=== PATIENT | female | born 1970 | race Caucasian/White ===

== ENCOUNTER 2016-11-23 15:17 | Emergency (ER) | payer SELFPAY ==
[2016-11-23] MEDS ORDERED: ONDANSETRON 4 MG TAB.RAPDIS PO ONE (15:42)
--- NOTE | 2016-11-23 15:46 | ER Document Report ---
ED Medical Screen (RME) - General Stated Complaint: NAUSEA Mode of Arrival: Ambulatory Information source: Patient Notes: c/o nausea for the past month and gagging but no vomiting. It has progressively gotten worse. Endorses associated abdominal pain, diarrhea but denies any fever/ chills. PMHx significant for Crohns disease. - Related Data Allergies/Adverse Reactions: metronidazole [From Flagyl] Allergy (Verified 11/23/16 15:42) Physical Exam - Vital signs Vitals: Temp Pulse Resp BP Pulse Ox 98.2 F 133 H 18 148/112 H 98 11/23/16 15:37 11/23/16 15:37 11/23/16 15:37 11/23/16 15:37 11/23/16 15:37 Course - Vital Signs Vital signs: Temp Pulse Resp BP Pulse Ox 98.2 F 133 H 18 148/112 H 98 11/23/16 15:37 11/23/16 15:37 11/23/16 15:37 11/23/16 15:37 11/23/16 15:37
[2016-11-23 16:05] LABS: ABSOLUTE EOSINOPHILS # (AUTO) 0.1 10^3/uL (0.0-0.6); ABSOLUTE LYMPHOCYTES (AUTO) 0.8 10^3/uL (0.5-4.7); ABSOLUTE NEUT (AUTO) 6.7 10^3/uL (1.7-8.2); BASOPHILS % (AUTO) 0.4 % (0-2); EOSINOPHILS % (AUTO) 0.8 % (0-6); HEMATOCRIT 42.8 % (36.0-47.0); HEMOGLOBIN 13.6 g/dL (12.0-15.5); LYMPHOCYTES % (AUTO) 9.8 % (13-45); MEAN CORPUSCULAR HGB CONC 31.8 g/dL (32.0-36.0); MEAN CORPUSCULAR VOLUME 79 fl (80-97); MONOCYTES % (AUTO) 11.3 % (3-13); RED BLOOD COUNT 5.44 10^6/uL (3.72-5.28); RED CELL DISTRIBUTION WIDTH 15.9 % (11.5-14.0); SEGMENTED NEUTROPHILS % (AUTO) 77.7 % (42-78); WHITE BLOOD COUNT 8.6 10^3/uL (4.0-10.5)
[2016-11-23 16:31] LABS: ALANINE AMINOTRANSFERASE 17 U/L (9-52); ALBUMIN 2.7 g/dL (3.5-5.0); ALKALINE PHOSPHATASE 113 U/L (38-126); ANION GAP 11 (5-19); ASPARTATE AMINO TRANSFERASE 12 U/L (14-36); BILIRUBIN,TOTAL 0.4 mg/dL (0.2-1.3); BLOOD UREA NITROGEN 10 mg/dL (7-20); CALCIUM 8.7 mg/dL (8.4-10.2); CARBON DIOXIDE 27 mmol/L (22-30); CHLORIDE 99 mmol/L (98-107); GLUCOSE 103 mg/dL (75-110); POTASSIUM 3.9 mmol/L (3.6-5.0); SODIUM 137.3 mmol/L (137-145); TOTAL PROTEIN 5.9 g/dL (6.3-8.2)
[2016-11-23] MEDS ORDERED: NORMAL SALINE 1000 ML 1,000 ML IV ONE (20:13)
[2016-11-23] MEDS ORDERED: METHYLPREDNISOLONE INJ 125 MG/2 ML SDV IV ONE (21:28)
--- NOTE | 2016-11-23 21:29 | ER Document Report ---
ED General - General Chief Complaint: Vomiting Stated Complaint: NAUSEA Mode of Arrival: Ambulatory Notes: Patient is a 46-year-old female with past medical history of inflammatory bowel disease who presents with 2.5 months of progressively worsening diarrhea, weight loss, and inability to eat a proper meal. She was taken off Humira in June and noticed that approximately 3-4 weeks thereafter the symptoms do develop. She has not seen a primary care physician regarding today's concerns. She is not currently taking anything to control her inflammatory bowel disease. She has had nausea without vomiting. No melena or hematochezia. She has not had any chest pain, shortness of breath or fever. Nothing improves or worsens or symptoms. Notes she's had similar symptoms in the past with a flare of her inflammatory bowel disease. TRAVEL OUTSIDE OF THE [place] IN LAST 30 DAYS: No - Related Data Allergies/Adverse Reactions: metronidazole [From Flagyl] Allergy (Verified 11/23/16 15:42) Past Medical History - General Information source: Patient - Social History Smoking Status: Never Smoker Chew tobacco use (# tins/day): No Frequency of alcohol use: None Drug Abuse: None Lives with: Family Family History: Reviewed & Not Pertinent Patient has suicidal ideation: No Patient has homicidal ideation: No Renal/ Medical History: Denies: Hx Peritoneal Dialysis Past Surgical History: Reports: Hx Abdominal Surgery - fissures Review of Systems - Review of Systems Notes: Constitutional: Negative for fever. Positive for weight loss HENT: Negative for sore throat. Eyes: Negative for visual changes. Cardiovascular: Negative for chest pain. Respiratory: Negative for shortness of breath. Gastrointestinal: Negative for abdominal pain, positive for diarrhea Genitourinary: Negative for dysuria. Musculoskeletal: Negative for back pain. Skin: Negative for rash. Neurological: Negative for headaches, weakness or numbness. 10 point ROS negative except as marked above and in HPI. Physical Exam - Vital signs Vitals: Temp Pulse Resp BP Pulse Ox 98.2 F 133 H 18 148/112 H 98 11/23/16 15:37 11/23/16 15:37 11/23/16 15:37 11/23/16 15:37 11/23/16 15:37 Interpretation: Hypertensive, Tachycardic Notes: PHYSICAL EXAMINATION: GENERAL: Well-appearing, well-nourished and in no acute distress. HEAD: Atraumatic, normocephalic. EYES: Pupils equal round and reactive to light, extraocular movements intact, sclera anicteric, conjunctiva are normal. ENT: nares patent, oropharynx clear without exudates. Moderately dry mucous membranes. NECK: Normal range of motion, supple without lymphadenopathy LUNGS: Breath sounds clear to auscultation bilaterally and equal. No wheezes rales or rhonchi. HEART: Regular rate and rhythm without murmurs ABDOMEN: Soft, nontender, normoactive bowel sounds. No guarding, no rebound. No masses appreciated. EXTREMITIES: Normal range of motion, no pitting or edema. No cyanosis. NEUROLOGICAL: No focal neurological deficits. Moves all extremities spontaneously and on command. PSYCH: Normal mood, normal affect. SKIN: Warm, Dry, normal turgor, no rashes or lesions noted. Course - Re-evaluation Re-evalutation: 11/23/16 21:28 Patient arrives complaining of 40 pound weight loss over the last 2-1/2 months as well as frequent diarrhea and inability to eat large quantities of food secondary to nausea without vomiting. She is overall nontoxic in appearance although she is severely tachycardic at time of arrival are in the 130s which I suspect is related to dehydration. She has no focal abdominal tenderness on exam to suggest an intra-abdominal abscess, bowel perforation, or fistula. I suspect the main etiology of her symptoms is her known inflammatory bowel disease as she was recently pulled off [facility] back in June and her symptoms developed within 1 month of that. She has recently moved to the area and does not have a primary care physician although is scheduled to see the [facility] in the next 1 month. Will start empirically on steroids, provide IV fluids and reassess. 11/23/16 22:19 Heart rate improved after IV fluids. Abdominal exam remains benign. Patient has tolerated oral intake. At this time will discharge with return precautions and follow-up recommendations. Verbal discharge instructions given a the bedside and opportunity for questions given. Medication warnings reviewed. Patient is in agreement with this plan and has verbalized understanding of return precautions and the need for primary care follow-up in the next 24-72 hours. - Vital Signs Vital signs: Temp Pulse Resp BP Pulse Ox 99.5 F 108 H 17 130/83 H 95 11/23/16 21:30 11/23/16 17:27 11/23/16 23:01 11/23/16 23:00 11/23/16 23:01 - Laboratory Result Diagrams: 11/23/16 15:50 11/23/16 15:50 Laboratory results interpreted by me: 11/23/16 11/23/16 15:50 15:50 RBC 5.44 H MCV 79 L MCH 25.0 L MCHC 31.8 L RDW 15.9 H Lymphocytes % 9.8 L AST 12 L Total Protein 5.9 L Albumin 2.7 L Discharge - Discharge Clinical Impression: Inflammatory bowel disease, Dehydration Condition: Good Disposition: HOME, SELF-CARE Additional Instructions: You are being started on steroids to help treat your inflammatory bowel disease however it is very important that you follow-up with both GI medicine as well as your primary care doctor as this is a long-term issue and will require chronic management. Please return to emergency department if you develop severe nausea, vomiting, worsening abdominal pain, fever greater than 100.4F, pass out, or have any other symptoms that are concerning to you. Prescriptions: Prednisone [Deltasone 20 mg Tablet] 3 tab PO DAILY 7 Days
[2016-11-23 23:27] VITALS: BP 130/83
== END 2016-11-23 23:50 | disposition home or self-care (01) ==
LOC: ER 15:17
DX: K63.89 Other specified diseases of intestine (principal); E86.0 Dehydration; R63.4 Abnormal weight loss; R19.7 Diarrhea, unspecified
CPT/HCPCS: 99283; 96361; 96374; 36415; 83690; 84703; 85025; 80053; S0119; J2930; J7030

== ENCOUNTER 2016-11-29 13:49 | Emergency (ER) | payer SELFPAY ==
[2016-11-29] MEDS ORDERED: ACETAMINOPHEN 325 MG TABLET PO ONE (14:11)
[2016-11-29] MEDS ORDERED: ONDANSETRON 4 MG TAB.RAPDIS PO ONE (14:12)
--- NOTE | 2016-11-29 14:12 | ER Document Report ---
ED Medical Screen (RME) - General Stated Complaint: FLU LIKE SYMPTOMS Mode of Arrival: Wheelchair Information source: Patient Notes: Patient has presented with feeling weak and having diarrhea for the past month. Patient was seen here from her primary doctor's office. Patient is complains of dizziness. No abdominal pain. No vomiting. hx: Possible crohns I have greeted and performed a rapid initial assessment of this patient. A comprehensive ED assessment and evaluation of the patient, analysis of test results and completion of the medical decision making process will be conducted by additional ED providers. TRAVEL OUTSIDE OF THE [place] IN LAST 30 DAYS: No - Related Data Allergies/Adverse Reactions: metronidazole [From Flagyl] Allergy (Verified 11/29/16 14:06) Past Medical History Renal/ Medical History: Denies: Hx Peritoneal Dialysis Past Surgical History: Reports: Hx Abdominal Surgery - fissures Physical Exam - Abdominal Tenderness: Tender - Lower abdomen
[2016-11-29 15:20] LABS: ABSOLUTE LYMPHOCYTES (AUTO) 0.4 10^3/uL (0.5-4.7); ABSOLUTE MONOCYTES (AUTO) 0.2 10^3/uL (0.1-1.4); ABSOLUTE NEUT (AUTO) 5.6 10^3/uL (1.7-8.2); BASOPHILS % (AUTO) 0.1 % (0-2); HEMATOCRIT 40.1 % (36.0-47.0); HEMOGLOBIN 12.9 g/dL (12.0-15.5); HGB HCT DIFFERENCE -1.4; LYMPHOCYTES % (AUTO) 7.1 % (13-45); MEAN CORPUSCULAR HEMOGLOBIN 24.6 pg (27.0-33.4); MEAN CORPUSCULAR HGB CONC 32.2 g/dL (32.0-36.0); MEAN CORPUSCULAR VOLUME 77 fl (80-97); MONOCYTES % (AUTO) 3.1 % (3-13); RED BLOOD COUNT 5.24 10^6/uL (3.72-5.28); RED CELL DISTRIBUTION WIDTH 16.3 % (11.5-14.0); SEGMENTED NEUTROPHILS % (AUTO) 89.7 % (42-78); WHITE BLOOD COUNT 6.2 10^3/uL (4.0-10.5)
[2016-11-29 15:41] LABS: ALANINE AMINOTRANSFERASE 19 U/L (9-52); ALBUMIN 2.4 g/dL (3.5-5.0); ALKALINE PHOSPHATASE 113 U/L (38-126); ANION GAP 8 (5-19); ASPARTATE AMINO TRANSFERASE 8 U/L (14-36); BILIRUBIN,TOTAL 0.3 mg/dL (0.2-1.3); BLOOD UREA NITROGEN 13 mg/dL (7-20); CALCIUM 8.2 mg/dL (8.4-10.2); CARBON DIOXIDE 30 mmol/L (22-30); CHLORIDE 97 mmol/L (98-107); CREATININE RESULT 0.69 mg/dL (0.52-1.25); GLUCOSE 150 mg/dL (75-110); LIPASE 46.8 U/L (23-300); POTASSIUM 4.3 mmol/L (3.6-5.0); SODIUM 135.2 mmol/L (137-145); TOTAL PROTEIN 5.9 g/dL (6.3-8.2)
[2016-11-29] MEDS ORDERED: NORMAL SALINE 1000 ML 1,000 ML IV ONE ×2 (16:47→21:45)
--- NOTE | 2016-11-29 16:56 | ER Document Report ---
ED General - General Chief Complaint: Diarrhea Stated Complaint: FLU LIKE SYMPTOMS Mode of Arrival: Wheelchair Information source: Patient Notes: This is a 46-year-old female with a history of inflammatory bowel disease who presents with a one-month history of worsening diarrhea and worsening worsening general weakness she states that she was seen here about a week ago for similar symptoms and received IV fluids. She was also placed on prednisone at that point. Today she had her first appointment at the [facility], and was noted to be so weak that she was having difficulty ambulating. It was felt that she would need IV fluids and the clinic was not able to do that so she was referred to the emergency department for further care. She states that she was diagnosed with her inflammatory bowel disease in [place] and she has not found a GI physician to follow up with here in [place]. However her physician at the [facility] is arranging this for her. She denies any fevers or chills. She has had no vomiting. She has just had significantly decreased oral intake over the past month. TRAVEL OUTSIDE OF THE [place] IN LAST 30 DAYS: No - Related Data Allergies/Adverse Reactions: metronidazole [From Flagyl] Allergy (Verified 11/29/16 14:06) Past Medical History - General Information source: Patient - Social History Smoking Status: Never Smoker Chew tobacco use (# tins/day): No Frequency of alcohol use: None Drug Abuse: None Family History: Reviewed & Not Pertinent Patient has suicidal ideation: No Patient has homicidal ideation: No Renal/ Medical History: Denies: Hx Peritoneal Dialysis GI Medical History: Reports: Other - inflammatory bowel disease Past Surgical History: Reports: Hx Abdominal Surgery - fissures Review of Systems - Review of Systems Notes: REVIEW OF SYSTEMS: CONSTITUTIONAL : Denies fever, chills, or sweats. EENT: Denies eye, ear, throat, or mouth pain or symptoms. Denies nasal or sinus congestion. CARDIOVASCULAR: Denies chest pain. RESPIRATORY: Denies cough, cold, or chest congestion. Denies shortness of breath, difficulty breathing, or wheezing. GASTROINTESTINAL: As per history of present illness GENITOURINARY: Denies difficulty urinating, painful urination, burning, frequency, or blood in urine. MUSCULOSKELETAL: Denies neck or back pain or joint pain or swelling. SKIN: Denies rash or skin lesions. HEMATOLOGIC : Denies easy bruising or bleeding. LYMPHATIC: Denies swollen, enlarged glands. NEUROLOGICAL: Denies altered mental status or loss of consciousness. Denies headache. PSYCHIATRIC: Denies anxiety or stress or depression. ALL OTHER SYSTEMS REVIEWED AND NEGATIVE. Physical Exam - Vital signs Vitals: Temp Pulse Resp BP Pulse Ox 97.7 F 96 18 146/103 H 98 11/29/16 14:06 11/29/16 14:06 11/29/16 14:06 11/29/16 14:06 11/29/16 14:06 - Notes Notes: PHYSICAL EXAMINATION: GENERAL: frail appearing female, somewhat pale, pleasant and conversant but very soft spoken HEAD: Atraumatic, normocephalic. EYES: Pupils equal round and reactive to light, extraocular movements intact, sclera anicteric, conjunctiva are normal. ENT: nares patent, oropharynx clear without exudates. Moist mucous somewhat dry. NECK: Normal range of motion, supple without lymphadenopathy LUNGS: Breath sounds clear to auscultation bilaterally and equal. No wheezes rales or rhonchi. HEART: Regular rate and rhythm without murmurs ABDOMEN: Soft, obese, nontender, normoactive bowel sounds. No guarding, no rebound. No masses appreciated. EXTREMITIES: Normal range of motion, no pitting or edema. No cyanosis. NEUROLOGICAL: Cranial nerves grossly intact. No focal motor or sensory deficits PSYCH: Normal mood, normal affect. SKIN: Warm, Dry, pale, normal turgor, no rashes or lesions noted. Course - Re-evaluation Re-evalutation: 11/29/16 21:47 Patient was reevaluated and we discussed the results of her CT and her lab work. She is feeling a little bit better after the IV fluids. However her orthostatics were done and she is still positive on her pulse rate has it went from 72-108 from lying to standing up her blood pressure did remain stable. The plan will be for her to receive 1 more liter of IV normal saline. She states that her physician at the [facility] is in the process of arranging her to see a advertising traffic manager which is what I believe needs to happen as the symptoms are secondary to her inflammatory bowel disease. Patient states actually her diarrhea is decreasing in frequency since starting the steroids. She is not vomiting and she is able to tolerate by mouth. She just has not had much of an appetite and is not drinking much at home. We discussed increasing her fluid intake and we discussed trying nutritional shakes as a supplement. At this point her labs and her CT are stable. I had a long discussion with the patient and her family about oral rehydration and follow-up precautions. They are comfortable with going home today as the patient has family to care for her and they will follow up with her primary care for GI evaluation. Patient family are reliable to return for any worsening symptoms. - Vital Signs Vital signs: Temp Pulse Resp BP Pulse Ox 97.7 F 72 16 135/86 H 97 11/29/16 14:09 11/29/16 21:29 11/29/16 14:09 11/29/16 21:29 11/29/16 14:09 - Laboratory Result Diagrams: 11/29/16 15:05 11/29/16 15:05 Laboratory results interpreted by me: 11/29/16 11/29/16 11/29/16 15:05 15:05 18:00 MCV 77 L MCH 24.6 L RDW 16.3 H Seg Neutrophils % 89.7 H Lymphocytes % 7.1 L Absolute Lymphocytes 0.4 L Sodium 135.2 L Chloride 97 L Glucose 150 H Calcium 8.2 L AST 8 L Total Protein 5.9 L Albumin 2.4 L Urine Blood MODERATE H Ur Leukocyte Esterase LARGE H - Diagnostic Test Radiology reviewed: Reports reviewed - CT of abdomen and pelvis with IV and oral contrast revealed no acute abnormality Discharge - Discharge Clinical Impression: Inflammatory bowel disease, Generalized weakness, Dehydration UTI (urinary tract infection) Qualifiers: Urinary tract infection type: site unspecified Hematuria presence: without hematuria Qualified Code(s): N39.0 - Urinary tract infection, site not specified Condition: Stable Disposition: HOME, SELF-CARE Additional Instructions: INTRAVENOUS (I V) FLUIDS: As part of your care today, you received intravenous (IV) fluids. IV fluids are administered to patients who are dehydrated or to those who have certain chemical (electrolyte) abnormalities that need correcting. ANTINAUSEA MEDICATION: You have been given a medication to suppress nausea and vomiting. This type of medication can be given as a shot, pill, or suppository. It will usually last for many hours. Pills and shots usually last six to eight hours. For the typical illness, only one or two doses of the medication may be necessary. Mild lightheadedness may occur. This type of medicine can cause drowsiness. Do not drive or operate dangerous machinery while under its influence. Do not mix with alcohol. See your doctor at once if you have muscle spasms or tightness, or uncontrollable motions (particularly of the neck, mouth, or jaw). Persistent vomiting or severe lightheadedness should also be evaluated by the physician. Dehydration Dehydration can result from vomiting or diarrhea, fever, or decreased intake of fluids. If severe, hospitalization and intravenous fluids may be required. Most cases are treated at home with fluids by mouth. For the next 24 hours, drink lots of clear fluids. In mild cases, this can be soda pop or sports drinks. For more severe dehydration, the doctor may recommend special fluids such as Pedialyte or Lytren. Try to get three liters ( 3 quarts) of fluid per day. If vomiting occurs, continue to drink the fluids frequently (every 15 to 20 minutes), but in small amounts (one or two ounces). Depending on the type of dehydration, the doctor may prescribe antinausea medicine or potassium replacements. Call the doctor or return for re-examination if you become progressively weak, vomit repeatedly, or have other new symptoms. Crohn's Disease Crohn's disease is an inflammatory disease of the intestines, affecting both the large and small intestine. The cause is unknown. Often there is vague abdominal pain and diarrhea for years before the diagnosis is made. The disease causes spotty thickening and inflammation of the bowel wall. With Crohn's disease, rectal fissures and abscesses are common. So is perforation of the bowel and internal abscess. The disease tends to flare spontaneously, then quiet down again. It never goes away completely. There is no cure for Crohn's disease. Acute flare-ups can be treated with steroids (such as prednisone), sometimes in combination with other medicines. Antibiotics (usually metronidazole) are often helpful. Sulfasalazine can ease the inflammation during flare-ups. Antidiarrhea medicine is taken as needed. Surgery may be needed for intestinal blockage, perforation, or hemorrhage. But surgery doesn't cure the disease -- it comes back in other places. Crohn's disease can cause immune disease in other body parts. Some patients will develop eye inflammation, arthritis, stiffened spine, liver inflammation, or skin disease. Kidney stones are more common in Crohn's patients. Lactose intolerance is common. There is a significant risk of developing a bowel tumor. Call the doctor if you have increasing abdominal pain, repeated vomiting, fever, rectal bleeding, or worsening diarrhea. Urinary Tract Infection Your evaluation indicates that you have a urinary tract infection. This is due to germs growing in the bladder. This is a common problem. This infection usually responds quickly to antibiotics. Your antibiotic should be taken exactly as prescribed. Drink plenty of fluids -- three to four quarts a day. Occasionally, a bladder anesthetic will be prescribed to help stop the feeling of urgency until the antibiotic has a chance to clear the infection. This may cause your urine to be dark orange. Certain urine infections require a culture. If the doctor obtained a culture, the results will be back in two days. You should call to see if a change in treatment is needed. A repeat urinalysis after you finish treatment is often recommended. The physician will let you know if further testing is required. Call the doctor if you develop fever, chills, flank pain, inability to urinate, or blood in the urine. FOLLOW-UP CARE: If you have been referred to a physician for follow-up care, call the physician s office for an appointment as you were instructed or within the next two days. If you experience worsening or a significant change in your symptoms, notify the physician immediately or return to the Emergency Department at any time for re-evaluation. It is very important that you follow-up with both GI medicine as well as your primary care doctor as your inflammatory bowel disease is a long-term issue and will require chronic management. Please return to emergency department if you develop severe nausea, vomiting, worsening abdominal pain, fever greater than 100.4F, pass out, or have any other symptoms that are concerning to you. Prescriptions: Ondansetron [Zofran Odt 4 mg Tablet] 1 tab PO Q4H PRN #15 tab.rapdis PRN Reason: For Nausea/Vomiting Sulfamethoxazole/Trimethoprim [Bactrim 400-80 mg Tablet] 1 each PO BID #10 tablet
[2016-11-29 19:47] LABS: APPEARANCE,URINE CLEAR; BILIRUBIN,URINE NEGATIVE (NEGATIVE); GLUCOSE, URINE NEGATIVE (NEGATIVE); KETONES,URINE NEGATIVE (NEGATIVE); LEUKOCYTE ESTERASE,URINE LARGE (NEGATIVE); NITRITE,URINE NEGATIVE (NEGATIVE); PROTEIN,URINE NEGATIVE (NEGATIVE); URINE SPECIFIC GRAVITY 1.006; UROBILINOGEN,URINE NEGATIVE mg/dL (<2.0)
[2016-11-29 23:42] VITALS: BP 138/76
== END 2016-11-29 23:42 | disposition home or self-care (01) ==
LOC: ER 13:49
DX: N39.0 Urinary tract infection, site not specified (principal); K50.90 Crohn's disease, unspecified, without complications; R53.1 Weakness; R19.7 Diarrhea, unspecified
CPT/HCPCS: 99284; 96360; 96361; 36415; 83690; 84703; 85025; 80053; 81001; 74177; S0119; J7030

== ENCOUNTER → 2016-12-01 | Outpatient (CLI) | payer OTHER | LOC: CCC 10:44 | DX: R19.7 Diarrhea, unspecified (principal); R68.81 Early satiety; D75.89 Other specified diseases of blood and blood-forming organs | CPT/HCPCS: 36415; 82607; 82728; 82746; 83540; 83550; 85652; 86677; 87045; 87177; 87205 ==

== ENCOUNTER 2016-12-07 16:41 | Inpatient (IN) | payer SELFPAY ==
--- NOTE | 2016-12-07 17:44 | ER Document Report ---
ED General - General Mode of Arrival: Medic Information source: Patient, Relative TRAVEL OUTSIDE OF THE [place] IN LAST 30 DAYS: No - HPI Patient complains to provider of: Generalized weakness and diarrhea Onset: Other - "Early September" Associated symptoms: Other - see above <PAYAM BROCK - Last Filed: 12/07/16 17:34> <RONYMARYBEL - Last Filed: 12/07/16 20:09> - General Chief Complaint: General Weakness Stated Complaint: WEAKNESS Notes: 46 year old female presents to the ED via EMS complaining of generalized weakness and diarrhea that has been present since early September. Patient's family states that she has a decreased appetite secondary to feeling like she has a "full stomach." [facility] and are trying to set up an appointment with Dr. Daly at [facility]. Patient has been seen in the ED on November 23 and complaining of generalized weakness, decreased appetite, diarrhea, and vomiting. Patient had a CT abdomen and pelvis performed on 11/29/2016 which was negative. Patient is not on any medications except for Zofran. (PAYAM BROCK) This 46-year-old female patient comes emergency room by EMS for complaint of feeling weak. She reports diarrhea, no appetite, nauseousness all the time. She reports she has thrown up 3 times a day and it is acid tasting. She usually does not vomit. She was seen here for the first time ever on 11/23/2016 at which time she was worked up and discharged on prednisone 60 mg daily for 7 days. She states that this did not seem to help her symptoms. She was seen again on 11/29/2016 and had a double contrasted CT scanning of the abdomen and pelvis which was unremarkable. She has been taking Zofran for nausea without much benefit. She reports she moved to this area in July 2016 and reports that she has been having worsening diarrhea, weight loss, and inability to eat a meal. The patient had been living in [place], where she was diagnosed with inflammatory bowel disease. She had been on Humira for a year, and possibly Imuran at the same time. She reports that controlled her symptoms quite well. This was stopped in June due to special program for the indigent had run out and she was unable to get the medication any longer. She moved to this area the following month. Lab work over the past 2 weeks shows the patient has a polycythemic, hypovolemic , hypochromic anemia. Her serum iron levels were too low to detect. She was also found to be hypoalbuminemic. (MARYBEL URIBE) - Related Data Allergies/Adverse Reactions: diphenhydramine [From Benadryl] Allergy (Verified 12/07/16 17:28) metronidazole [From Flagyl] Allergy (Verified 12/07/16 17:28) Past Medical History - General Information source: Patient, Relative - Social History Smoking Status: Unknown if Ever Smoked Family History: Reviewed & Not Pertinent - Medical History Medical History: Negative Renal/ Medical History: Denies: Hx Peritoneal Dialysis Past Surgical History: Reports: Hx Abdominal Surgery - anal fissure repair <PAYAM BROCK - Last Filed: 12/07/16 17:34> Review of Systems - Review of Systems Constitutional: See HPI, Weakness EENT: No symptoms reported Cardiovascular: No symptoms reported Respiratory: No symptoms reported Gastrointestinal: See HPI, Diarrhea, Poor appetite Genitourinary: No symptoms reported Female Genitourinary: No symptoms reported Musculoskeletal: No symptoms reported Skin: No symptoms reported Hematologic/Lymphatic: No symptoms reported Neurological/Psychological: No symptoms reported -: Yes All other systems reviewed and negative <PAYAM BROCK - Last Filed: 12/07/16 17:34> Physical Exam - General General appearance: Alert, Other - Slow to answer questions. In distress: None - HEENT Head: Normocephalic, Atraumatic Eyes: Normal Extraocular movements intact: Yes Pupils: PERRL - Respiratory Respiratory status: No respiratory distress Breath sounds: Normal - Cardiovascular Rhythm: Regular Heart sounds: Normal auscultation - Abdominal Inspection: Normal, Obese Distension: No distension Bowel sounds: Normal Tenderness: Nontender - Back Back: Normal - Extremities General upper extremity: Normal inspection, Normal ROM General lower extremity: Normal inspection, Normal ROM - Neurological Neuro grossly intact: Yes - Psychological Associated symptoms: Depressed - Skin Skin Temperature: Warm Skin Moisture: Dry Skin Color: Normal <PAYAM BROCK - Last Filed: 12/07/16 17:34> <MARYBEL URIBE - Last Filed: 12/07/16 20:09> - Vital signs Vitals: Resp 18 12/07/16 16:45 (PAYAM BROCK) (MARYBEL URIBE) Course - Laboratory Result Diagrams: 12/07/16 17:09 12/07/16 17:09 - Consults Dr. Duval Time consulted: 19:50 <MARYBEL URIBE - Last Filed: 12/07/16 20:09> - Vital Signs Vital signs: Temp Pulse Resp BP Pulse Ox 98.1 F 20 135/98 H 98 12/07/16 16:56 12/07/16 18:01 12/07/16 18:01 12/07/16 18:01 (PAYAM BROCK) (MARYBEL URIBE) - Laboratory Laboratory results interpreted by me: 12/07/16 12/07/16 17:09 17:09 MCV 74 L MCH 24.4 L RDW 16.3 H Plt Count 451 H Lymphocytes % 11.3 L Monocytes % 15.7 H Sodium 127.4 L Chloride 94 L Glucose 115 H Calcium 7.3 L Total Protein 4.9 L Albumin 1.7 L Lipase < 10.0 L (MARYBEL URIBE) Discharge <PAYAM BROCK - Last Filed: 12/07/16 17:34> - Discharge Admitting Provider: Hospitalist Unit Admitted: Medical Floor <MARYBEL URIBE - Last Filed: 12/07/16 20:09> - Discharge Clinical Impression: Nausea vomiting and diarrhea, Weakness, Hypoalbuminemia, Hyponatremia, Iron deficiency, Inflammatory bowel disease Condition: Stable Disposition: ADMITTED OBSERVATION Scribe Attestation: 12/07/16 20:09 I personally performed the services described in the documentation, reviewed and edited the documentation which was dictated to the scribe in my presence, and it accurately records my words and actions. (MARYBEL URIBE) Scribe Documentation - Scribe Written by Esteban:: Esteban Alamo, 12/07/2016 [id number] acting as scribe for :: Rony <PAYAM BROCK - Last Filed: 12/07/16 17:34>
[2016-12-07 17:52] LABS: ABSOLUTE MONOCYTES (AUTO) 1.4 10^3/uL (0.1-1.4); ABSOLUTE NEUT (AUTO) 6.5 10^3/uL (1.7-8.2); BASOPHILS % (AUTO) 0.2 % (0-2); EOSINOPHILS % (AUTO) 0.4 % (0-6); HEMATOCRIT 36.6 % (36.0-47.0); HGB HCT DIFFERENCE -0.6; LYMPHOCYTES % (AUTO) 11.3 % (13-45); MEAN CORPUSCULAR HEMOGLOBIN 24.4 pg (27.0-33.4); MEAN CORPUSCULAR HGB CONC 32.8 g/dL (32.0-36.0); MEAN CORPUSCULAR VOLUME 74 fl (80-97); MONOCYTES % (AUTO) 15.7 % (3-13); RED BLOOD COUNT 4.93 10^6/uL (3.72-5.28); RED CELL DISTRIBUTION WIDTH 16.3 % (11.5-14.0); SEGMENTED NEUTROPHILS % (AUTO) 72.4 % (42-78)
[2016-12-07 17:56] LABS: ALANINE AMINOTRANSFERASE 23 U/L (9-52); ALBUMIN 1.7 g/dL (3.5-5.0); ALKALINE PHOSPHATASE 117 U/L (38-126); ANION GAP 7 (5-19); ASPARTATE AMINO TRANSFERASE 25 U/L (14-36); BILIRUBIN,TOTAL 0.6 mg/dL (0.2-1.3); BLOOD UREA NITROGEN 11 mg/dL (7-20); CALCIUM 7.3 mg/dL (8.4-10.2); CARBON DIOXIDE 26 mmol/L (22-30); CHLORIDE 94 mmol/L (98-107); GLUCOSE 115 mg/dL (75-110); POTASSIUM 3.9 mmol/L (3.6-5.0); SODIUM 127.4 mmol/L (137-145); TOTAL PROTEIN 4.9 g/dL (6.3-8.2)
[2016-12-07 18:00] LABS: LIPASE < 10.0 U/L (23-300)
[2016-12-07] MEDS ORDERED: DEXTROSE 5%-LACTATED RINGERS 1,000 ML IV ONE (18:09)
[2016-12-07] MEDS ORDERED: ONDANSETRON HCL INJ/PF 4 MG/2 ML SDV IV ONE (18:10)
[2016-12-07 18:29] LABS: ERYTHROCYTE SEDIMENTATION RATE 14 mm/hr (0-20)
[2016-12-07 19:19] LABS: ADD ON TESTING BLD IN LAB ACKNOWLEDGE
[2016-12-07 19:32] LABS: MAGNESIUM 1.8 mg/dL (1.6-2.3)
[2016-12-07] MEDS ORDERED: TEMAZEPAM 7.5 MG CAPSULE PO PRN (19:57)
[2016-12-07] MEDS ORDERED: MAGNESIUM HYDROXIDE SUSP 30 ML UDCUP PO PRN (19:57)
[2016-12-07] MEDS ORDERED: ONDANSETRON HCL INJ/PF 4 MG/2 ML SDV IV PRN (19:57)
--- NOTE | 2016-12-07 20:44 | PDOC CONSULTATION ---
Consultation Consult Date: 12/07/16 Attending physician:: MEÑO CONNER Consult reason:: hyponatremia, low albumin, History of Present Illness Admission Date/PCP: 12/07/16 19:58 KATLYN SERNA MD History of Present Illness: DARREN KOEHLER is a 46 year old female I was asked to see patient by hospitalist physician patient recently moved to the area, patient apparently has been given a diagnosis of inflammatory bowel disease while in [place] patient apparently was on Humira provided by the [facility]. has moved to this area, has not seen a primary care physician she present with hyponatremia he main complaint is of nausea, vomiting and early satiety she also has diarrhea which she states is multiple times per day but her K is normal Her sed rate is normal without being on medication for her IBD her H/H is stable as well it is stated that she had a " double contrast CT scan " done on 11/29. However when I reviewed the note is specifically states that on IV contrast was provided and no oral contrast was administered her CT scan was normal at that time going thru her labs, I do not see any iron studies being performed unless they have been drawn at another location Past Medical History Past Medical History: patient was diagnosed with IBD, it is less likely to be ulcerative colitis since patient does not have bloody diarrhea Past Surgical History Past Surgical History: Anal fissure in the past Social History Smoking Status: Unknown if Ever Smoked Family History Family History: Reviewed & Not Pertinent Parental Family History Reviewed: Yes Children Family History Reviewed: Unknown Sibling(s) Family History Reviewed.: Unknown Medication/Allergy Home Medications: Ondansetron [Zofran Odt 4 mg Tablet] 4 mg PO Q4HP PRN 12/07/16 Allergies/Adverse Reactions: diphenhydramine [From Benadryl] Allergy (Verified 12/07/16 17:28) metronidazole [From Flagyl] Allergy (Verified 12/07/16 17:28) Review of Systems Constitutional: ABSENT: chills, fever(s), headache(s), night sweats Eyes: ABSENT: visual disturbances Ears: ABSENT: hearing changes Nose, Mouth, and Throat: ABSENT: mouth pain Cardiovascular: ABSENT: dyspnea on exertion, orthropnea, palpitations Respiratory: ABSENT: dyspnea, hemoptysis Gastrointestinal: PRESENT: bloating, diarrhea, nausea, vomiting. ABSENT: dysphagia, hematochezia, melena Genitourinary: ABSENT: dysuria, hematuria Integumentary: ABSENT: lesions, pruritus Neurological: ABSENT: frequent falls, syncope, tremor(s), vertigo Endocrine: ABSENT: cold intolerance, polydipsia, polyphagia, polyuria Physical Exam Vital Signs: Temp Pulse Resp BP Pulse Ox 98.1 F 20 135/98 H 98 12/07/16 16:56 12/07/16 18:01 12/07/16 18:01 12/07/16 18:01 General appearance: PRESENT: mild distress Head exam: PRESENT: atraumatic, normocephalic Eye exam: PRESENT: EOMI, PERRLA. ABSENT: nystagmus, periorbital swelling, scleral icterus Mouth exam: PRESENT: moist Neck exam: ABSENT: meningismus, tenderness, thyromegaly, tracheal deviation Respiratory exam: PRESENT: symmetrical, unlabored. ABSENT: chest wall tenderness, crackles Cardiovascular exam: PRESENT: RRR, +S1, +S2. ABSENT: rubs GI/Abdominal exam: PRESENT: normal bowel sounds, soft. ABSENT: guarding, Lester 's sign, rebound, rigid Musculoskeletal exam: PRESENT: full ROM Neurological exam: PRESENT: alert, awake, oriented to person, oriented to time, CN II-XII grossly intact Skin exam: PRESENT: normal color. ABSENT: mottled, pallor, petechiae, urticaria , vesicles Assessment & Plan - Diagnosis (1) Hyponatremia Plan: will need to have water restriction and work up for hypovolemic hyponatremia consult Nephrology if needed (2) Inflammatory bowel disease Plan: was given the diagnosis of IBD but has been off medication per her history somewhat surprising that her hgb is in the normal range, and her sed rate is normal at this point a contrast study would be best imaging exam she will need a repeat CT scan with oral contrast or a UGIS with SBFT would recheck anti-sachromyces antibody to determine if there is IBD will need to get records from previous health care provider to determine what work up was done she states that steroid did not work although that wouldl be the mainstay of therapy if biologicals are not used her WBC is normal as well her LFT's are similarly normal (3) Iron deficiency Plan: she has a low MCV anemia but since I am not able to find any iron studies done, would re draw iron levels, ferritin etc she does not appear to have profound anemia at this point if she does have evidence of Crohn's disease, then the question of treatment since 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
[2016-12-07] MEDS ORDERED: IRON POLYSACCHARIDES COMPLEX 150 MG CAPSULE PO ONE (21:00)
[2016-12-07] MEDS ORDERED: ASCORBIC ACID 500 MG TABLET PO ONE (21:00)
[2016-12-07] MEDS ORDERED: NORMAL SALINE 1000 ML 1,000 ML IV SCH (22:30)
[2016-12-07 23:12] LABS: PREALBUMIN 5.1 mg/dL (17.6-36.0)
[2016-12-07] MEDS: MESALAMINE 400 MG CAPSULE.DR PO SCH (23:25)
[2016-12-07] MEDS: HEPARIN SOD (PORCINE) 5,000 UNIT/ML 1 ML SYRINGE SUBCUT SCH (23:25)
[2016-12-07] MEDS: NORMAL SALINE 1000 ML 1,000 ML IV SCH (23:26)
[2016-12-08] MEDS: ACETAMINOPHEN 325 MG TABLET PO PRN ×5 (00:54→19:27)
[2016-12-08] MEDS ORDERED: INFLUENZA ADLT QUAD (36MOS+) 2016-17 VAC 0.5 ML SYR IM PRN (01:37)
[2016-12-08] MEDS: NORMAL SALINE 1000 ML 1,000 ML IV SCH (03:20)
--- NOTE | 2016-12-08 03:41 | PDOC H&P ---
History of Present Illness Admission Date/PCP: 12/07/16 19:58 KATLYN SERNA MD Patient complains of: Nausea vomiting History of Present Illness: DARREN KOEHLER is a 46 year old female with an unclear past medical history of ulcerative colitis on Humira until approximately 3 months ago after relocating from [place] to [place]. Over the last 2-3 weeks she's had early satiety nausea vomiting of gastric content and an unintentional weight loss of an estimated 20 pounds in the last month. She has a flat affect and a gag reflexes is initiated by oral exam and tongue protrusion. She denies any recent medications and otherwise feels profound fatigue. Evaluation the emergency room is concerning for severe malnutrition with an albumin of 1.7 a prealbumin of 5 she is referred to the hospitalist for admission Past Medical History GI Medical History: Reports: Ulcerative Colitis Psychiatric Medical History: Reports: Depression Social History Information Source: Patient, Parent Lives with: Family Smoking Status: Never Smoker Frequency of Alcohol Use: None Hx Recreational Drug Use: No Drugs: None Hx Prescription Drug Abuse: No - Advance Directive Resuscitation Status: Full Code Family History Family History: Hypertension Parental Family History Reviewed: Yes Children Family History Reviewed: Yes Sibling(s) Family History Reviewed.: Yes Medication/Allergy Home Medications: Ondansetron [Zofran Odt 4 mg Tablet] 4 mg PO Q4HP PRN 12/07/16 Acetaminophen 1,000 mg PO PRN PRN 12/08/16 Allergies/Adverse Reactions: diphenhydramine [From Benadryl] Allergy (Verified 12/07/16 17:28) metronidazole [From Flagyl] Allergy (Verified 12/07/16 17:28) Review of Systems Constitutional: PRESENT: as per HPI, anorexia, fatigue, weakness, weight loss. ABSENT: fever(s), headache(s), night sweats Eyes: ABSENT: visual disturbances Ears: ABSENT: hearing changes Cardiovascular: ABSENT: chest pain, dyspnea on exertion, edema, orthropnea, palpitations Respiratory: ABSENT: cough, hemoptysis Gastrointestinal: PRESENT: abdominal pain, bloating, diarrhea, heartburn, nausea , vomiting. ABSENT: coffee ground emesis, constipation, dysphagia, hematemesis , hematochezia, melena Genitourinary: ABSENT: dysuria, hematuria Musculoskeletal: ABSENT: joint swelling Integumentary: ABSENT: rash, wounds Neurological: ABSENT: abnormal gait, abnormal speech, confusion, dizziness, focal weakness, syncope Psychiatric: PRESENT: depression Endocrine: PRESENT: cold intolerance, menstrual abnormalities. ABSENT: polydipsia, polyphagia, polyuria Hematologic/Lymphatic: ABSENT: easy bleeding, easy bruising Physical Exam Vital Signs: Temp Pulse Resp BP Pulse Ox 98.7 F 108 H 18 124/78 100 12/07/16 23:38 12/08/16 00:06 12/07/16 23:38 12/07/16 23:38 12/07/16 23:38 General appearance: PRESENT: cooperative, disheveled, mild distress, morbidly obese Head exam: PRESENT: atraumatic, normocephalic Eye exam: PRESENT: conjunctiva pink, EOMI, PERRLA. ABSENT: scleral icterus Ear exam: PRESENT: normal external ear exam Mouth exam: PRESENT: dry mucosa, tongue midline, other - No oral ulcer, tongue beefy red Neck exam: ABSENT: carotid bruit, JVD, lymphadenopathy, thyromegaly Respiratory exam: PRESENT: clear to auscultation richi. ABSENT: rales, rhonchi, wheezes Cardiovascular exam: PRESENT: RRR. ABSENT: diastolic murmur, rubs, systolic murmur Pulses: PRESENT: normal dorsalis pedis pul Vascular exam: PRESENT: normal capillary refill GI/Abdominal exam: PRESENT: diminished bowel sounds, hypoactive bowel sounds, soft, tenderness. ABSENT: distended, firm, guarding, hernia, mass, Lester's sign, normal bowel sounds, organolmegaly, rebound, rigid Rectal exam: PRESENT: deferred Extremities exam: PRESENT: full ROM. ABSENT: calf tenderness, clubbing, pedal edema Neurological exam: PRESENT: alert, awake, oriented to person, oriented to place , oriented to time, oriented to situation, CN II-XII grossly intact. ABSENT: motor sensory deficit Psychiatric exam: PRESENT: anxious, depressed, flat affect, unusual affect Skin exam: PRESENT: dry, intact, warm. ABSENT: cyanosis, rash Results Laboratory Results: 12/07/16 12/07/16 12/07/16 21:15 21:15 22:40 Phosphorus Cancelled 3.0 Prealbumin Cancelled 5.1 L TSH 12/07/16 22:40 Phosphorus Prealbumin TSH 1.54 Assessment & Plan - Diagnosis (1) Ulcerative colitis Is this a current diagnosis for this admission?: YesPlan: Patient admits off Humira proximally 3 months though sedimentation rate is only 17 I'll initiate mesalamine for maintenance (2) Malnutrition Is this a current diagnosis for this admission?: YesPlan: Unclear if malabsorption, possible bacterial overgrowth, no evidence for pancreatic insufficiency. Stool studies pending Jo-Ann protein ordered low lactose and celiac diet ordered (3) Iron deficiency Is this a current diagnosis for this admission?: YesPlan: Fecal occult blood pending iron studies obtained approximately a week ago on record, Iron and vitamin C ordered (4) Nausea vomiting and diarrhea Is this a current diagnosis for this admission?: YesPlan: Symptomatic management, CT abdomen pelvis unremarkable trial clear liquid diet (5) Depression Is this a current diagnosis for this admission?: YesPlan: Depression patient has a flat affect and is nauseated by the action of protruding her tongue. Patient denies homicidal or suicidal ideation. I Will evaluate TSH and consider SSRI and or mental health consultation. - Time Time Spent: 30 to 50 Minutes
[2016-12-08 05:09] LABS: APPEARANCE,URINE SLIGHTLY-CLOUDY; BILIRUBIN,URINE NEGATIVE (NEGATIVE); GLUCOSE, URINE 150 mg/dL (NEGATIVE); KETONES,URINE NEGATIVE (NEGATIVE); LEUKOCYTE ESTERASE,URINE NEGATIVE (NEGATIVE); NITRITE,URINE NEGATIVE (NEGATIVE); PROTEIN,URINE NEGATIVE (NEGATIVE); URINE SPECIFIC GRAVITY 1.008; UROBILINOGEN,URINE NEGATIVE mg/dL (<2.0)
[2016-12-08] MEDS: HEPARIN SOD (PORCINE) 5,000 UNIT/ML 1 ML SYRINGE SUBCUT SCH ×3 (05:32→21:45)
[2016-12-08 05:33] LABS: ABSOLUTE EOSINOPHILS # (AUTO) 0.1 10^3/uL (0.0-0.6); ABSOLUTE NEUT (AUTO) 3.6 10^3/uL (1.7-8.2); BASOPHILS % (AUTO) 0.4 % (0-2); EOSINOPHILS % (AUTO) 1.1 % (0-6); HEMATOCRIT 30.2 % (36.0-47.0); HGB HCT DIFFERENCE -0.2; LYMPHOCYTES % (AUTO) 17.4 % (13-45); MEAN CORPUSCULAR HEMOGLOBIN 24.5 pg (27.0-33.4); MEAN CORPUSCULAR HGB CONC 33.2 g/dL (32.0-36.0); MEAN CORPUSCULAR VOLUME 74 fl (80-97); MONOCYTES % (AUTO) 17.1 % (3-13); RED CELL DISTRIBUTION WIDTH 16.3 % (11.5-14.0); WHITE BLOOD COUNT 5.6 10^3/uL (4.0-10.5)
[2016-12-08 05:53] LABS: ALANINE AMINOTRANSFERASE 31 U/L (9-52); ALBUMIN 1.1 g/dL (3.5-5.0); ALKALINE PHOSPHATASE 81 U/L (38-126); ASPARTATE AMINO TRANSFERASE 11 U/L (14-36); BILIRUBIN,TOTAL 0.5 mg/dL (0.2-1.3); BLOOD UREA NITROGEN 8 mg/dL (7-20); CARBON DIOXIDE 24 mmol/L (22-30); CHLORIDE 103 mmol/L (98-107); CREATININE RESULT 0.49 mg/dL (0.52-1.25); GLUCOSE 95 mg/dL (75-110); POTASSIUM 3.5 mmol/L (3.6-5.0); SODIUM 131.1 mmol/L (137-145); TOTAL PROTEIN 3.5 g/dL (6.3-8.2)
[2016-12-08 06:07] LABS: ANION GAP 4 (5-19)
[2016-12-08 06:08] LABS: CALCIUM 6.4 mg/dL (8.4-10.2)
[2016-12-08] MEDS ORDERED: METHYLPREDNISOLONE INJ 125 MG/2 ML SDV IV SCH (09:15)
[2016-12-08] MEDS: MESALAMINE 400 MG CAPSULE.DR PO SCH ×4 (09:24→21:45)
[2016-12-08] MEDS: ASCORBIC ACID 500 MG TABLET PO SCH ×2 (09:24→17:31)
[2016-12-08] MEDS: DOCUSATE SODIUM 100 MG CAPSULE PO SCH (09:24)
[2016-12-08] MEDS ORDERED: ONDANSETRON HCL INJ/PF 4 MG/2 ML SDV IV PRN (09:43)
[2016-12-08] MEDS ORDERED: IRON POLYSACCHARIDES COMPLEX 150 MG CAPSULE PO SCH (10:00)
[2016-12-08] MEDS: LACTOBACILLUS ACIDOPHILUS 250 MG TAB PO SCH ×2 (10:59→17:31)
[2016-12-08] MEDS ORDERED: MESALAMINE 4 GM/60 ML ENEMA PR ONE (11:00)
[2016-12-08] MEDS ORDERED: POTASSIUM CHLORIDE 10 MEQ TABLET.SA PO ONE (11:00)
[2016-12-08] MEDS: METHYLPREDNISOLONE INJ 125 MG/2 ML SDV IV SCH ×3 (11:00→23:52)
--- NOTE | 2016-12-08 11:28 | PDOC PROGRESS REPORT ---
Subjective Progress Note for:: 12/08/16 Subjective:: The patient is currently lying in bed. The patient denies any nausea, vomiting , diarrhea, shortness of breath, dizziness, chest pain, heart palpitations, fevers, or chills since admission. The patient has remained afebrile. Blood pressures have been in a good range. I discussed the patient's history with the patient and her mother. Although both are quite poor historians it appears the patient was diagnosed with ulcerative colitis in 2003. And some point in time the patient has been on a 5- ASA depending upon what samples have been available. The patient has been uninsured during this process. Most of the patient's course she is been treated through a free clinic with steroids. In June or August 2015 the patient qualified for a patient assistance program with [facility]. The patient took a year of Humira in conjunction with Imuran without complication. During this year the patient had no flares and symptoms were very well managed. However in June or August 2016 the patient was dropped from the program. The patient, being uninsured, abruptly stopping these medications and has not been on any medications for control since. The patient has not had a steroid course nor has she had a refill on her Imuran. The patient has relocated here from [place] and has [facility]. According to the patient's mother she was unable to get a refill on her prescriptions given that she "didn't have a diagnosis". Review of systems: The rest of the review of systems is negative. Physical Exam Vital Signs: Temp Pulse Resp BP Pulse Ox 97.5 F 115 H 20 130/82 H 99 12/08/16 08:36 12/08/16 08:36 12/08/16 08:36 12/08/16 08:36 12/08/16 08:36 Intake & Output 12/06/16 12/07/16 12/08/16 23:59 23:59 23:59 Intake Total 1573 Output Total 1000 Balance 573 Weight 77.1 kg General appearance: PRESENT: no acute distress, cooperative, well-developed, well-nourished Head exam: PRESENT: atraumatic, normocephalic Eye exam: PRESENT: conjunctiva pink, EOMI, PERRLA. ABSENT: scleral icterus Ear exam: PRESENT: normal external ear exam Mouth exam: PRESENT: moist, tongue midline Neck exam: ABSENT: carotid bruit, JVD, lymphadenopathy, thyromegaly Respiratory exam: PRESENT: clear to auscultation richi. ABSENT: rales, rhonchi, wheezes Cardiovascular exam: PRESENT: RRR. ABSENT: diastolic murmur, rubs, systolic murmur Pulses: PRESENT: normal dorsalis pedis pul Vascular exam: PRESENT: normal capillary refill GI/Abdominal exam: PRESENT: normal bowel sounds, soft. ABSENT: distended, guarding, mass, organolmegaly, rebound, tenderness Rectal exam: PRESENT: deferred Extremities exam: PRESENT: full ROM, other - Anasarca malnutrition. ABSENT: calf tenderness, clubbing, pedal edema Neurological exam: PRESENT: alert, awake, oriented to person, oriented to place , oriented to time, oriented to situation, CN II-XII grossly intact. ABSENT: motor sensory deficit Psychiatric exam: PRESENT: appropriate affect, normal mood. ABSENT: homicidal ideation, suicidal ideation Skin exam: PRESENT: dry, intact, pallor, warm. ABSENT: cyanosis, rash Results Laboratory Results: 12/08/16 05:19 12/08/16 05:19 12/07/16 12/07/16 12/07/16 21:15 21:15 22:40 WBC RBC Hgb Hct MCV MCH MCHC RDW Plt Count Seg Neutrophils % Lymphocytes % Monocytes % Eosinophils % Basophils % Absolute Neutrophils Absolute Lymphocytes Absolute Monocytes Absolute Eosinophils Absolute Basophils Sodium Potassium Chloride Carbon Dioxide Anion Gap BUN Creatinine Est GFR ( Amer) Est GFR (Non-Af Amer) Glucose Calcium Phosphorus Cancelled 3.0 Total Bilirubin AST ALT Alkaline Phosphatase Total Protein Albumin Prealbumin Cancelled 5.1 L TSH Urine Color Urine Appearance Urine pH Ur Specific [place] Urine Protein Urine Glucose (UA) Urine Ketones Urine Blood Urine Nitrite Ur Leukocyte Esterase Urine WBC (Auto) Urine RBC (Auto) Stool Occult Blood Stool for White Cells 12/07/16 12/08/16 12/08/16 22:40 04:33 04:33 WBC RBC Hgb Hct MCV MCH MCHC RDW Plt Count Seg Neutrophils % Lymphocytes % Monocytes % Eosinophils % Basophils % Absolute Neutrophils Absolute Lymphocytes Absolute Monocytes Absolute Eosinophils Absolute Basophils Sodium Potassium Chloride Carbon Dioxide Anion Gap BUN Creatinine Est GFR ( Amer) Est GFR (Non-Af Amer) Glucose Calcium Phosphorus Total Bilirubin AST ALT Alkaline Phosphatase Total Protein Albumin Prealbumin TSH 1.54 Urine Color Urine Appearance Urine pH Ur Specific [place] Urine Protein Urine Glucose (UA) Urine Ketones Urine Blood Urine Nitrite Ur Leukocyte Esterase Urine WBC (Auto) Urine RBC (Auto) Stool Occult Blood NEGATIVE Stool for White Cells MANY H 12/08/16 12/08/16 12/08/16 04:33 05:19 05:19 WBC 5.6 RBC 4.10 Hgb 10.0 L Hct 30.2 L MCV 74 L MCH 24.5 L MCHC 33.2 RDW 16.3 H Plt Count 217 Seg Neutrophils % 64.0 Lymphocytes % 17.4 Monocytes % 17.1 H Eosinophils % 1.1 Basophils % 0.4 Absolute Neutrophils 3.6 Absolute Lymphocytes 1.0 Absolute Monocytes 1.0 Absolute Eosinophils 0.1 Absolute Basophils 0.0 Sodium 131.1 L Potassium 3.5 L Chloride 103 Carbon Dioxide 24 Anion Gap 4 L BUN 8 Creatinine 0.49 L Est GFR ( Amer) > 60 Est GFR (Non-Af Amer) > 60 Glucose 95 Calcium 6.4 L* Phosphorus Total Bilirubin 0.5 AST 11 L ALT 31 Alkaline Phosphatase 81 Total Protein 3.5 L Albumin 1.1 L Prealbumin TSH Urine Color YELLOW Urine Appearance SLIGHTLY-CLOUDY Urine pH 6.0 Ur Specific [place] 1.008 Urine Protein NEGATIVE Urine Glucose (UA) 150 H Urine Ketones NEGATIVE Urine Blood NEGATIVE Urine Nitrite NEGATIVE Ur Leukocyte Esterase NEGATIVE Urine WBC (Auto) 7 Urine RBC (Auto) 0 Stool Occult Blood Stool for White Cells Assessment & Plan - Diagnosis (1) Ulcerative colitis Qualifiers: Ulcerative colitis location: unspecified ulcerative colitis location Digestive disease complication type: other complication Qualified Code(s) : K51.918 - Ulcerative colitis, unspecified with other complication Is this a current diagnosis for this admission?: YesPlan: Currently in flare. Will load with steroid. Decreased dose tomorrow. The patient is terribly malnourished. I have discussed this with her. Hopefully we can get patient in with GI or assistance through the free clinic. Unfortunately the patient has abruptly stopped immunotherapy and I discussed antibodies with the patient. (2) Depression Qualifiers: Depression Type: unspecified Qualified Code(s): F32.9 - Major depressive disorder, single episode, unspecified Is this a current diagnosis for this admission?: YesPlan: Odd affect (3) Hypoalbuminemia Is this a current diagnosis for this admission?: Yes (4) Hyponatremia Is this a current diagnosis for this admission?: YesPlan: Secondary to malnutrition (5) Iron deficiency Is this a current diagnosis for this admission?: YesPlan: Secondary to #1 will try to supplement. I require IV. (6) Malnutrition Is this a current diagnosis for this admission?: Yes - Time Time Spent with patient: 35 or more minutes Medications reviewed and adjusted accordingly: Yes Anticipated discharge: Home Within: within 48 hours
[2016-12-08] MEDS ORDERED: TAMSULOSIN HCL 0.4 MG CAP.SR.24H PO ONE (15:00)
[2016-12-09] MEDS: ACETAMINOPHEN 325 MG TABLET PO PRN ×3 (04:17→15:29)
[2016-12-09] MEDS: HEPARIN SOD (PORCINE) 5,000 UNIT/ML 1 ML SYRINGE SUBCUT SCH ×3 (05:39→22:14)
[2016-12-09] MEDS: METHYLPREDNISOLONE INJ 125 MG/2 ML SDV IV SCH ×4 (05:39→23:05)
[2016-12-09] MEDS ORDERED: CALCIUM GLUCONATE 1000 MG/10 ML INJ IV ONE (08:15)
[2016-12-09] MEDS ORDERED: LOPERAMIDE HCL 2 MG CAPSULE PO PRN (08:53)
[2016-12-09] MEDS ORDERED: DIPHENOXYLATE HCL/ATROP SULF 2.5-0.025 MG TABLET PO PRN (09:11)
[2016-12-09] MEDS ORDERED: POTASSIUM CHLORIDE 10 MEQ TABLET.SA PO ONE (09:30)
[2016-12-09] MEDS: LACTOBACILLUS ACIDOPHILUS 250 MG TAB PO SCH ×2 (09:45→18:18)
[2016-12-09] MEDS: MESALAMINE 400 MG CAPSULE.DR PO SCH ×4 (09:46→22:14)
[2016-12-09] MEDS: ASCORBIC ACID 500 MG TABLET PO SCH ×2 (09:48→18:19)
[2016-12-09] MEDS: DOCUSATE SODIUM 100 MG CAPSULE PO SCH (10:57)
[2016-12-09] MEDS: VITAMINS A AND D OINTMENT 56.7 GM TOP SCH ×2 (15:31→22:15)
[2016-12-09] MEDS: LANSOPRAZOLE 30 MG TAB.RAP.DR PO SCH (18:19)
[2016-12-09] MEDS: FAMOTIDINE 20 MG TABLET PO SCH (22:15)
[2016-12-10] MEDS: ACETAMINOPHEN 325 MG TABLET PO PRN ×3 (00:01→22:56)
[2016-12-10] MEDS: METHYLPREDNISOLONE INJ 125 MG/2 ML SDV IV SCH ×4 (06:11→23:01)
[2016-12-10] MEDS: HEPARIN SOD (PORCINE) 5,000 UNIT/ML 1 ML SYRINGE SUBCUT SCH ×3 (06:11→22:56)
[2016-12-10 06:55] LABS: ALANINE AMINOTRANSFERASE 22 U/L (9-52); ALBUMIN 1.9 g/dL (3.5-5.0); ALKALINE PHOSPHATASE 94 U/L (38-126); ANION GAP 6 (5-19); ASPARTATE AMINO TRANSFERASE 13 U/L (14-36); BILIRUBIN,TOTAL 0.3 mg/dL (0.2-1.3); BLOOD UREA NITROGEN 14 mg/dL (7-20); CALCIUM 7.9 mg/dL (8.4-10.2); CARBON DIOXIDE 25 mmol/L (22-30); CHLORIDE 101 mmol/L (98-107); CREATININE RESULT 0.69 mg/dL (0.52-1.25); GLUCOSE 131 mg/dL (75-110); POTASSIUM 4.9 mmol/L (3.6-5.0); SODIUM 132.4 mmol/L (137-145); TOTAL PROTEIN 4.8 g/dL (6.3-8.2)
[2016-12-10] MEDS: MESALAMINE 400 MG CAPSULE.DR PO SCH ×4 (09:04→22:56)
[2016-12-10] MEDS: DOCUSATE SODIUM 100 MG CAPSULE PO SCH (09:05)
[2016-12-10] MEDS: FAMOTIDINE 20 MG TABLET PO SCH ×2 (09:05→22:56)
[2016-12-10] MEDS: ASCORBIC ACID 500 MG TABLET PO SCH ×2 (09:05→17:38)
[2016-12-10] MEDS: LACTOBACILLUS ACIDOPHILUS 250 MG TAB PO SCH ×2 (09:05→17:37)
[2016-12-10] MEDS: LANSOPRAZOLE 30 MG TAB.RAP.DR PO SCH ×2 (09:09→17:38)
[2016-12-10] MEDS: VITAMINS A AND D OINTMENT 56.7 GM TOP SCH ×2 (10:24→17:00)
[2016-12-10] MEDS ORDERED: CALCIUM GLUCONATE 1000 MG/10 ML INJ IV ONE (11:00)
--- NOTE | 2016-12-10 15:27 | PDOC PROGRESS REPORT ---
Subjective Progress Note for:: 12/09/16 Subjective:: Patient seen on morning rounds. She is resting comfortably in bed. She denies any nausea or abdominal pain at the present time. She is continuing to have diarrhea but not as frequently. She denies any fever or chills. She denies any chest pain, shortness of breath or dyspnea. She denies any arthralgias or myalgias. Her mother is at bedside. Patient had to have Brownlee inserted overnight due to urinary retention. Patient denies any other complaints at the present time. Physical Exam Vital Signs: Temp Pulse Resp BP Pulse Ox 98.3 F 87 16 124/88 H 99 12/10/16 12:00 12/10/16 14:00 12/10/16 12:00 12/10/16 12:00 12/10/16 12:00 Intake & Output 12/09/16 12/10/16 12/11/16 06:59 06:59 06:59 Intake Total 705 Output Total 1800 Balance -1095 Weight 79.2 kg General appearance: PRESENT: no acute distress, well-developed, well-nourished Head exam: PRESENT: atraumatic, normocephalic Eye exam: PRESENT: conjunctiva pink, EOMI, PERRLA. ABSENT: scleral icterus Ear exam: PRESENT: normal external ear exam Mouth exam: PRESENT: moist, tongue midline Neck exam: PRESENT: carotid bruit Respiratory exam: PRESENT: accessory muscle use Cardiovascular exam: PRESENT: RRR. ABSENT: diastolic murmur, rubs, systolic murmur Pulses: PRESENT: normal dorsalis pedis pul Vascular exam: PRESENT: normal capillary refill GI/Abdominal exam: PRESENT: normal bowel sounds, soft. ABSENT: distended, guarding, mass, organolmegaly, rebound, tenderness Rectal exam: PRESENT: deferred Extremities exam: PRESENT: full ROM. ABSENT: calf tenderness, clubbing, pedal edema Neurological exam: PRESENT: alert, awake, oriented to person, oriented to place , oriented to time, oriented to situation, CN II-XII grossly intact. ABSENT: motor sensory deficit Psychiatric exam: PRESENT: appropriate affect, normal mood. ABSENT: homicidal ideation, suicidal ideation Skin exam: PRESENT: dry, intact, warm. ABSENT: cyanosis, rash Results Laboratory Results: 12/10/16 06:24 12/10/16 06:24 Sodium 132.4 L Potassium 4.9 Chloride 101 Carbon Dioxide 25 Anion Gap 6 BUN 14 Creatinine 0.69 Est GFR ( Amer) > 60 Est GFR (Non-Af Amer) > 60 Glucose 131 H Calcium 7.9 L Total Bilirubin 0.3 AST 13 L ALT 22 Alkaline Phosphatase 94 Total Protein 4.8 L Albumin 1.9 L Impressions: Abdomen/Pelvis CT 12/08/16 00:00 IMPRESSION: Scattered air-fluid levels with slightly distended large and small bowel. Very mild inflammation along the descending colon. This is improved when compared to prior study dated November 29. Changes may be related to 8 ileus partial distal small bowel obstruction cannot be excluded. There is no free air. There is free fluid in the pelvis. Abdomen Ultrasound 12/09/16 08:42 IMPRESSION: Fatty liver. No gallstones, gallbladder wall thickening or pericholecystic fluid Small Bowel X-Ray 12/09/16 11:29 IMPRESSION: SOMEWHAT DELAYED TRANSIT OF ORAL CONTRAST THROUGHOUT THE SMALL BOWEL INTO THE COLON SUGGESTIVE OF ILEUS GIVEN FINDINGS ON PRIOR CT. NO EVIDENCE FOR OBSTRUCTION. Assessment & Plan - Diagnosis (1) Hyponatremia Is this a current diagnosis for this admission?: YesPlan: Patient was initially rehydrated with IV normal saline. She is now on free water restriction. Her sodium is improving (2) Ulcerative colitis Qualifiers: Ulcerative colitis location: unspecified ulcerative colitis location Digestive disease complication type: other complication Qualified Code(s) : K51.918 - Ulcerative colitis, unspecified with other complication Is this a current diagnosis for this admission?: YesPlan: Patient has a history of inflammatory bowel disease diagnosed in [place]. Her last colonoscopy was 2 years ago. She recently relocated [place] told with her mother. She has not been seen by a physician since her arrival here. She has diarrhea for the last 3 weeks. There is been no blood. CT of the abdomen and pelvis with IV contrast only shows partial ileus of small bowel. After Jacob saw the patient in consult. His been started on prednisone and Asacol. He would like a ultrasound of the gallbladder small bowel series x- rays follow-through. (3) Iron deficiency Is this a current diagnosis for this admission?: YesPlan: Continue iron supplement hemoglobin is stable. (4) Hypoalbuminemia Is this a current diagnosis for this admission?: YesPlan: Albumin is 1.1 most likely due to malabsorption from inflammatory bowel disease. (5) Depression Qualifiers: Depression Type: unspecified Qualified Code(s): F32.9 - Major depressive disorder, single episode, unspecified Is this a current diagnosis for this admission?: YesPlan: continue current meds (6) Malnutrition Is this a current diagnosis for this admission?: YesPlan: Secondary to inflammatory bowel disease - Time Time Spent with patient: 25-34 minutes Critical Time spent with patient: 15-24 minutes Medications reviewed and adjusted accordingly: Yes Anticipated discharge: Home
--- NOTE | 2016-12-10 15:33 | PDOC PROGRESS REPORT ---
Subjective Progress Note for:: 12/10/16 Subjective:: Patient seen on morning rounds. She is resting comfortably in bed. She states she is feeling somewhat better. She denies any nausea or abdominal pain at the present time. She is continuing to have diarrhea but not as frequently. She denies any fever or chills. She denies any chest pain, shortness of breath or dyspnea. She denies any arthralgias or myalgias. Her mother is at bedside. Patient denies any other complaints at the present time. Physical Exam Vital Signs: Temp Pulse Resp BP Pulse Ox 98.3 F 87 16 124/88 H 99 12/10/16 12:00 12/10/16 14:00 12/10/16 12:00 12/10/16 12:00 12/10/16 12:00 Intake & Output 12/09/16 12/10/16 12/11/16 06:59 06:59 06:59 Intake Total 705 Output Total 1800 Balance -1095 Weight 79.2 kg General appearance: PRESENT: no acute distress, well-developed, well-nourished Head exam: PRESENT: atraumatic, normocephalic Ear exam: PRESENT: normal external ear exam Mouth exam: PRESENT: moist, neck supple, tongue midline Neck exam: ABSENT: carotid bruit, JVD, lymphadenopathy, thyromegaly Respiratory exam: PRESENT: clear to auscultation richi. ABSENT: rales, rhonchi, wheezes Cardiovascular exam: PRESENT: RRR. ABSENT: diastolic murmur, rubs, systolic murmur Pulses: PRESENT: normal dorsalis pedis pul Vascular exam: PRESENT: normal capillary refill GI/Abdominal exam: PRESENT: normal bowel sounds, soft. ABSENT: distended, guarding, mass, organolmegaly, rebound, tenderness Rectal exam: PRESENT: deferred Extremities exam: PRESENT: full ROM. ABSENT: calf tenderness, clubbing, pedal edema Musculoskeletal exam: PRESENT: full ROM, normal inspection Neurological exam: PRESENT: alert, awake, oriented to person, oriented to place , oriented to time, oriented to situation, CN II-XII grossly intact. ABSENT: motor sensory deficit Psychiatric exam: PRESENT: flat affect Skin exam: PRESENT: dry, intact, warm. ABSENT: cyanosis, rash Results Laboratory Results: 12/10/16 06:24 12/10/16 06:24 Sodium 132.4 L Potassium 4.9 Chloride 101 Carbon Dioxide 25 Anion Gap 6 BUN 14 Creatinine 0.69 Est GFR ( Amer) > 60 Est GFR (Non-Af Amer) > 60 Glucose 131 H Calcium 7.9 L Total Bilirubin 0.3 AST 13 L ALT 22 Alkaline Phosphatase 94 Total Protein 4.8 L Albumin 1.9 L Impressions: Abdomen/Pelvis CT 12/08/16 00:00 IMPRESSION: Scattered air-fluid levels with slightly distended large and small bowel. Very mild inflammation along the descending colon. This is improved when compared to prior study dated November 29. Changes may be related to 8 ileus partial distal small bowel obstruction cannot be excluded. There is no free air. There is free fluid in the pelvis. Abdomen Ultrasound 12/09/16 08:42 IMPRESSION: Fatty liver. No gallstones, gallbladder wall thickening or pericholecystic fluid Small Bowel X-Ray 12/09/16 11:29 IMPRESSION: SOMEWHAT DELAYED TRANSIT OF ORAL CONTRAST THROUGHOUT THE SMALL BOWEL INTO THE COLON SUGGESTIVE OF ILEUS GIVEN FINDINGS ON PRIOR CT. NO EVIDENCE FOR OBSTRUCTION. Assessment & Plan - Diagnosis (1) Hyponatremia Is this a current diagnosis for this admission?: YesPlan: Patient was initially rehydrated with IV normal saline. She is now on free water restriction. Her sodium is improving (2) Ulcerative colitis Qualifiers: Ulcerative colitis location: unspecified ulcerative colitis location Digestive disease complication type: other complication Qualified Code(s) : K51.918 - Ulcerative colitis, unspecified with other complication Is this a current diagnosis for this admission?: YesPlan: Patient has a history of inflammatory bowel disease diagnosed in [place]. Her last colonoscopy was 2 years ago. She recently relocated [place] told with her mother. She has not been seen by a physician since her arrival here. She has diarrhea for the last 3 weeks. There is been no blood. CT of the abdomen and pelvis with IV contrast only shows partial ileus of small bowel. After Jacob saw the patient in consult. His been started on prednisone and Asacol. He would like a ultrasound of the gallbladder was normal, small bowel series shows partial ileus of small bowel going into colon (3) Iron deficiency Is this a current diagnosis for this admission?: YesPlan: Continue iron supplement hemoglobin is stable. (4) Hypoalbuminemia Is this a current diagnosis for this admission?: YesPlan: Albumin today 1.9 secondary to malabsorption from IBD (5) Depression Qualifiers: Depression Type: unspecified Qualified Code(s): F32.9 - Major depressive disorder, single episode, unspecified Is this a current diagnosis for this admission?: YesPlan: continue current meds (6) Malnutrition Is this a current diagnosis for this admission?: YesPlan: Secondary to inflammatory bowel disease - Time Time Spent with patient: 25-34 minutes Critical Time spent with patient: 15-24 minutes Medications reviewed and adjusted accordingly: Yes
[2016-12-11] MEDS: HEPARIN SOD (PORCINE) 5,000 UNIT/ML 1 ML SYRINGE SUBCUT SCH ×3 (05:25→21:34)
[2016-12-11] MEDS: METHYLPREDNISOLONE INJ 125 MG/2 ML SDV IV SCH (05:25)
[2016-12-11] MEDS: ACETAMINOPHEN 325 MG TABLET PO PRN ×3 (06:51→21:34)
[2016-12-11 07:03] LABS: ABSOLUTE LYMPHOCYTES (AUTO) 0.3 10^3/uL (0.5-4.7); ABSOLUTE MONOCYTES (AUTO) 0.3 10^3/uL (0.1-1.4); ABSOLUTE NEUT (AUTO) 4.5 10^3/uL (1.7-8.2); BASOPHILS % (AUTO) 0.1 % (0-2); HEMATOCRIT 33.2 % (36.0-47.0); HEMOGLOBIN 10.7 g/dL (12.0-15.5); HGB HCT DIFFERENCE -1.1; LYMPHOCYTES % (AUTO) 6.2 % (13-45); MEAN CORPUSCULAR HEMOGLOBIN 24.2 pg (27.0-33.4); MEAN CORPUSCULAR HGB CONC 32.3 g/dL (32.0-36.0); MEAN CORPUSCULAR VOLUME 75 fl (80-97); MONOCYTES % (AUTO) 6.7 % (3-13); RED BLOOD COUNT 4.43 10^6/uL (3.72-5.28); RED CELL DISTRIBUTION WIDTH 17.3 % (11.5-14.0); WHITE BLOOD COUNT 5.2 10^3/uL (4.0-10.5)
[2016-12-11 07:19] LABS: ANION GAP 9 (5-19); BLOOD UREA NITROGEN 18 mg/dL (7-20); CALCIUM 8.1 mg/dL (8.4-10.2); CARBON DIOXIDE 25 mmol/L (22-30); CHLORIDE 100 mmol/L (98-107); CREATININE RESULT 0.61 mg/dL (0.52-1.25); GLUCOSE 137 mg/dL (75-110); POTASSIUM 5.8 mmol/L (3.6-5.0); SODIUM 133.5 mmol/L (137-145)
[2016-12-11] MEDS: LACTOBACILLUS ACIDOPHILUS 250 MG TAB PO SCH ×2 (09:05→17:47)
[2016-12-11] MEDS: MESALAMINE 400 MG CAPSULE.DR PO SCH ×4 (09:05→21:34)
[2016-12-11] MEDS: ASCORBIC ACID 500 MG TABLET PO SCH ×2 (09:06→17:48)
[2016-12-11] MEDS: FAMOTIDINE 20 MG TABLET PO SCH ×2 (09:06→21:34)
[2016-12-11] MEDS: LANSOPRAZOLE 30 MG TAB.RAP.DR PO SCH ×2 (09:06→17:48)
[2016-12-11] MEDS: DOCUSATE SODIUM 100 MG CAPSULE PO SCH (09:11)
[2016-12-11] MEDS: POLYETHYLENE GLYCOL 3350 POWDER 17 GM/1 PACKET PO SCH (09:11)
[2016-12-11] MEDS ORDERED: MAG CARB/AL HYDROX/ALGINIC AC 355 ML BOTTLE PO PRN (09:34)
[2016-12-11] MEDS: PREDNISONE 20 MG TABLET PO SCH ×2 (11:26→17:48)
[2016-12-11] MEDS: VITAMINS A AND D OINTMENT 56.7 GM TOP SCH ×2 (11:41→18:54)
--- NOTE | 2016-12-11 13:36 | PDOC PROGRESS REPORT ---
Subjective Progress Note for:: 12/11/16 Subjective:: Patient seen on morning rounds. She is resting comfortably in bed. She states she is feeling somewhat better. She denies any nausea or abdominal pain at the present time. She is continuing to have diarrhea but not as frequently. She states she thinks she has a rectal fissure. She denies any fever or chills. She denies any chest pain, shortness of breath or dyspnea. She denies any arthralgias or myalgias. Her mother is at bedside. Patient denies any other complaints at the present time. Physical Exam Vital Signs: Temp Pulse Resp BP Pulse Ox 98.2 F 96 20 128/80 H 100 12/11/16 12:40 12/11/16 12:40 12/11/16 12:40 12/11/16 12:40 12/11/16 12:40 Intake & Output 12/10/16 12/11/16 12/12/16 06:59 06:59 06:59 Intake Total 705 100 Output Total 1800 850 Balance -1095 -750 Weight 79.2 kg 79.2 kg General appearance: PRESENT: no acute distress, well-developed, well-nourished Head exam: PRESENT: atraumatic Eye exam: PRESENT: conjunctiva pink, EOMI, PERRLA. ABSENT: scleral icterus Ear exam: PRESENT: normal external ear exam Mouth exam: PRESENT: moist, tongue midline Neck exam: ABSENT: carotid bruit, JVD, lymphadenopathy, thyromegaly Respiratory exam: PRESENT: clear to auscultation richi. ABSENT: rales, rhonchi, wheezes Cardiovascular exam: PRESENT: RRR. ABSENT: diastolic murmur, rubs, systolic murmur Pulses: PRESENT: normal dorsalis pedis pul Vascular exam: PRESENT: normal capillary refill GI/Abdominal exam: PRESENT: normal bowel sounds, soft. ABSENT: distended, guarding, mass, organolmegaly, rebound, tenderness Rectal exam: PRESENT: deferred Extremities exam: PRESENT: full ROM. ABSENT: calf tenderness, clubbing, pedal edema Neurological exam: PRESENT: alert, awake, oriented to person, oriented to place , oriented to time, oriented to situation, CN II-XII grossly intact. ABSENT: motor sensory deficit Psychiatric exam: PRESENT: appropriate affect, normal mood. ABSENT: homicidal ideation, suicidal ideation Skin exam: PRESENT: dry, intact, warm. ABSENT: cyanosis, rash Results Laboratory Results: 12/11/16 06:14 12/11/16 06:14 12/11/16 12/11/16 06:14 06:14 WBC 5.2 RBC 4.43 Hgb 10.7 L Hct 33.2 L MCV 75 L MCH 24.2 L MCHC 32.3 RDW 17.3 H Plt Count 455 H Seg Neutrophils % 87.0 H Lymphocytes % 6.2 L Monocytes % 6.7 Eosinophils % 0.0 Basophils % 0.1 Absolute Neutrophils 4.5 Absolute Lymphocytes 0.3 L Absolute Monocytes 0.3 Absolute Eosinophils 0.0 Absolute Basophils 0.0 Sodium 133.5 L Potassium 5.8 H Chloride 100 Carbon Dioxide 25 Anion Gap 9 BUN 18 Creatinine 0.61 Est GFR ( Amer) > 60 Est GFR (Non-Af Amer) > 60 Glucose 137 H Calcium 8.1 L Impressions: Abdomen/Pelvis CT 12/08/16 00:00 IMPRESSION: Scattered air-fluid levels with slightly distended large and small bowel. Very mild inflammation along the descending colon. This is improved when compared to prior study dated November 29. Changes may be related to 8 ileus partial distal small bowel obstruction cannot be excluded. There is no free air. There is free fluid in the pelvis. Abdomen Ultrasound 12/09/16 08:42 IMPRESSION: Fatty liver. No gallstones, gallbladder wall thickening or pericholecystic fluid Small Bowel X-Ray 12/09/16 11:29 IMPRESSION: SOMEWHAT DELAYED TRANSIT OF ORAL CONTRAST THROUGHOUT THE SMALL BOWEL INTO THE COLON SUGGESTIVE OF ILEUS GIVEN FINDINGS ON PRIOR CT. NO EVIDENCE FOR OBSTRUCTION. Assessment & Plan - Diagnosis (1) Hyponatremia Is this a current diagnosis for this admission?: YesPlan: Patient was initially rehydrated with IV normal saline. She is now on free water restriction. Her sodium is improving (2) Ulcerative colitis Qualifiers: Ulcerative colitis location: unspecified ulcerative colitis location Digestive disease complication type: other complication Qualified Code(s) : K51.918 - Ulcerative colitis, unspecified with other complication Is this a current diagnosis for this admission?: YesPlan: Patient has a history of inflammatory bowel disease diagnosed in [place]. Her last colonoscopy was 2 years ago. She recently relocated [place] told with her mother. She has not been seen by a physician since her arrival here. She has diarrhea for the last 3 weeks. There is been no blood. CT of the abdomen and pelvis with IV contrast only shows partial ileus of small bowel. After Jacob saw the patient in consult. His been started on prednisone and Asacol. He would like a ultrasound of the gallbladder was normal, small bowel series shows partial ileus of small bowel going into colon (3) Iron deficiency Is this a current diagnosis for this admission?: YesPlan: Continue iron supplement hemoglobin is stable. (4) Hypoalbuminemia Is this a current diagnosis for this admission?: YesPlan: Albumin today 1.9 secondary to malabsorption from IBD (5) Depression Qualifiers: Depression Type: unspecified Qualified Code(s): F32.9 - Major depressive disorder, single episode, unspecified Is this a current diagnosis for this admission?: YesPlan: continue current meds (6) Malnutrition Is this a current diagnosis for this admission?: YesPlan: Secondary to inflammatory bowel disease - Time Time Spent with patient: 25-34 minutes Critical Time spent with patient: 15-24 minutes Medications reviewed and adjusted accordingly: Yes Anticipated discharge: Home
[2016-12-11] MEDS: HYDROCORTISONE 1% OINTMENT 28.35 GM TP SCH (17:48)
[2016-12-12] MEDS: HEPARIN SOD (PORCINE) 5,000 UNIT/ML 1 ML SYRINGE SUBCUT SCH ×3 (06:07→21:28)
[2016-12-12 06:44] LABS: ANION GAP 8 (5-19); BLOOD UREA NITROGEN 16 mg/dL (7-20); CARBON DIOXIDE 26 mmol/L (22-30); CHLORIDE 102 mmol/L (98-107); CREATININE RESULT 0.53 mg/dL (0.52-1.25); GLUCOSE 123 mg/dL (75-110); POTASSIUM 4.6 mmol/L (3.6-5.0)
[2016-12-12] MEDS: ACETAMINOPHEN 325 MG TABLET PO PRN (08:46)
[2016-12-12] MEDS ORDERED: HYDROCORTISONE ACETATE 25 MG SUPP.RECT PR PRN (09:29)
[2016-12-12] MEDS: DOCUSATE SODIUM 100 MG CAPSULE PO SCH (10:19)
[2016-12-12] MEDS: FAMOTIDINE 20 MG TABLET PO SCH ×2 (10:19→21:28)
[2016-12-12] MEDS: LANSOPRAZOLE 30 MG TAB.RAP.DR PO SCH ×2 (10:20→18:39)
[2016-12-12] MEDS: CHOLECALCIFEROL (D3) 1,000 UNIT TABLET PO SCH (10:20)
[2016-12-12] MEDS: PREDNISONE 20 MG TABLET PO SCH ×3 (10:20→18:40)
[2016-12-12] MEDS: LACTOBACILLUS ACIDOPHILUS 250 MG TAB PO SCH ×2 (10:20→18:38)
[2016-12-12] MEDS: ASCORBIC ACID 500 MG TABLET PO SCH ×2 (10:21→18:38)
[2016-12-12] MEDS: POLYETHYLENE GLYCOL 3350 POWDER 17 GM/1 PACKET PO SCH (10:21)
[2016-12-12] MEDS: MESALAMINE 400 MG CAPSULE.DR PO SCH ×4 (10:21→21:28)
[2016-12-12] MEDS: HYDROCORTISONE 1% OINTMENT 28.35 GM TP SCH ×2 (10:23→18:40)
[2016-12-12] MEDS: VITAMINS A AND D OINTMENT 56.7 GM TOP SCH ×2 (10:56→18:40)
--- NOTE | 2016-12-12 11:50 | PDOC PROGRESS REPORT ---
Subjective Progress Note for:: 12/12/16 Subjective:: Patient seen on morning rounds. She is resting comfortably in bed. She states she is feeling somewhat better. She denies any nausea or abdominal pain at the present time. She is continuing to have diarrhea but not as frequently. She states she thinks she has a rectal fissure. She denies any fever or chills. She denies any chest pain, shortness of breath or dyspnea. She denies any arthralgias or myalgias. Her mother is at bedside. Patient denies any other complaints at the present time. Physical Exam Vital Signs: Temp Pulse Resp BP Pulse Ox 97.5 F 76 18 136/85 H 100 12/11/16 14:58 12/12/16 02:00 12/11/16 14:58 12/11/16 14:58 12/11/16 14:58 Intake & Output 12/11/16 12/12/16 12/13/16 06:59 06:59 06:59 Intake Total 100 845 Output Total 850 2850 - Weight 79.2 kg 79.1 kg General appearance: PRESENT: no acute distress, well-developed, well-nourished Head exam: PRESENT: atraumatic, normocephalic Eye exam: PRESENT: conjunctiva pink, EOMI, PERRLA. ABSENT: scleral icterus Ear exam: PRESENT: normal external ear exam Mouth exam: PRESENT: moist, tongue midline Neck exam: ABSENT: carotid bruit, JVD, lymphadenopathy, thyromegaly Respiratory exam: PRESENT: clear to auscultation richi. ABSENT: rales, rhonchi, wheezes Cardiovascular exam: PRESENT: RRR. ABSENT: diastolic murmur, rubs, systolic murmur Pulses: PRESENT: normal dorsalis pedis pul Vascular exam: PRESENT: normal capillary refill GI/Abdominal exam: PRESENT: normal bowel sounds, soft. ABSENT: distended, guarding, mass, organolmegaly, rebound, tenderness Rectal exam: PRESENT: deferred Extremities exam: PRESENT: full ROM. ABSENT: calf tenderness, clubbing, pedal edema Neurological exam: PRESENT: alert, awake, oriented to person, oriented to place , oriented to time, oriented to situation, CN II-XII grossly intact. ABSENT: motor sensory deficit Psychiatric exam: PRESENT: appropriate affect, normal mood. ABSENT: homicidal ideation, suicidal ideation Skin exam: PRESENT: dry, intact, warm. ABSENT: cyanosis, rash Results Laboratory Results: 12/11/16 06:14 12/12/16 06:17 12/12/16 06:17 Sodium 136.0 L Potassium 4.6 Chloride 102 Carbon Dioxide 26 Anion Gap 8 BUN 16 Creatinine 0.53 Est GFR ( Amer) > 60 Est GFR (Non-Af Amer) > 60 Glucose 123 H Calcium 8.0 L Impressions: Abdomen/Pelvis CT 12/08/16 00:00 IMPRESSION: Scattered air-fluid levels with slightly distended large and small bowel. Very mild inflammation along the descending colon. This is improved when compared to prior study dated November 29. Changes may be related to 8 ileus partial distal small bowel obstruction cannot be excluded. There is no free air. There is free fluid in the pelvis. Abdomen Ultrasound 12/09/16 08:42 IMPRESSION: Fatty liver. No gallstones, gallbladder wall thickening or pericholecystic fluid Small Bowel X-Ray 12/09/16 11:29 IMPRESSION: SOMEWHAT DELAYED TRANSIT OF ORAL CONTRAST THROUGHOUT THE SMALL BOWEL INTO THE COLON SUGGESTIVE OF ILEUS GIVEN FINDINGS ON PRIOR CT. NO EVIDENCE FOR OBSTRUCTION. Assessment & Plan - Diagnosis (1) Hyponatremia Is this a current diagnosis for this admission?: YesPlan: Patient was initially rehydrated with IV normal saline. She is now on free water restriction. Her sodium is improving (2) Ulcerative colitis Qualifiers: Ulcerative colitis location: unspecified ulcerative colitis location Digestive disease complication type: other complication Qualified Code(s) : K51.918 - Ulcerative colitis, unspecified with other complication Is this a current diagnosis for this admission?: Yes (3) Iron deficiency Is this a current diagnosis for this admission?: Yes (4) Hypoalbuminemia Is this a current diagnosis for this admission?: Yes (5) Depression Qualifiers: Depression Type: unspecified Qualified Code(s): F32.9 - Major depressive disorder, single episode, unspecified Is this a current diagnosis for this admission?: Yes (6) Malnutrition Is this a current diagnosis for this admission?: Yes - Time Time Spent with patient: 25-34 minutes Critical Time spent with patient: 15-24 minutes Medications reviewed and adjusted accordingly: Yes
--- NOTE | 2016-12-12 13:12 | PDOC PROGRESS REPORT ---
Subjective Progress Note for:: 12/12/16 Subjective:: Patient is feeling somewhat better. She is resting comfortably. Diarrhea seems to be improving. However this no blood in her stools. This makes a diagnosis of ulcerative colitis less likely. Given the fact that she's not had any treatment and did not have any bloody diarrhea would suggest that if she did have inflammatory bowel disease he would be related more to Crohn's disease. She did have all contrast on the CT scan and it did not suggest any narrowing, stricture. Which would be more common with Crohn's disease. There does not appear to be an obstruction. It was read Be having an ileus. When she first came in she was started on some anti-inflammatory medications.. While that could have made her feel better she is really only had at best to to 3 days of therapy however her overall improvement seems to have improved more dramatically with hydration. Her hyponatremia is improving. Physical Exam Vital Signs: Temp Pulse Resp BP Pulse Ox 97.5 F 76 18 136/85 H 100 12/11/16 14:58 12/12/16 02:00 12/11/16 14:58 12/11/16 14:58 12/11/16 14:58 Intake & Output 12/11/16 12/12/16 12/13/16 06:59 06:59 06:59 Intake Total 100 845 Output Total 850 2850 - Weight 79.2 kg 79.1 kg General appearance: PRESENT: no acute distress, well-developed, well-nourished Head exam: PRESENT: atraumatic, normocephalic Eye exam: PRESENT: EOMI, PERRLA. ABSENT: nystagmus, periorbital swelling, scleral icterus Mouth exam: PRESENT: moist Throat exam: ABSENT: tonsillar exudate Neck exam: ABSENT: meningismus, tenderness, thyromegaly Respiratory exam: PRESENT: clear to auscultation richi, symmetrical. ABSENT: wheezes Cardiovascular exam: PRESENT: RRR, +S1, +S2. ABSENT: rubs Pulses: PRESENT: normal carotid pulses GI/Abdominal exam: PRESENT: soft. ABSENT: Lester's sign, rebound, rigid, tenderness Musculoskeletal exam: PRESENT: full ROM Neurological exam: PRESENT: alert, awake, oriented to person, oriented to time, oriented to situation, reflexes normal Psychiatric exam: PRESENT: appropriate affect Skin exam: PRESENT: normal color. ABSENT: mottled, pallor, petechiae, rash, urticaria, vesicles Results Laboratory Results: 12/11/16 06:14 12/12/16 06:17 12/12/16 06:17 Sodium 136.0 L Potassium 4.6 Chloride 102 Carbon Dioxide 26 Anion Gap 8 BUN 16 Creatinine 0.53 Est GFR ( Amer) > 60 Est GFR (Non-Af Amer) > 60 Glucose 123 H Calcium 8.0 L Impressions: Abdomen/Pelvis CT 12/08/16 00:00 IMPRESSION: Scattered air-fluid levels with slightly distended large and small bowel. Very mild inflammation along the descending colon. This is improved when compared to prior study dated November 29. Changes may be related to 8 ileus partial distal small bowel obstruction cannot be excluded. There is no free air. There is free fluid in the pelvis. Abdomen Ultrasound 12/09/16 08:42 IMPRESSION: Fatty liver. No gallstones, gallbladder wall thickening or pericholecystic fluid Small Bowel X-Ray 12/09/16 11:29 IMPRESSION: SOMEWHAT DELAYED TRANSIT OF ORAL CONTRAST THROUGHOUT THE SMALL BOWEL INTO THE COLON SUGGESTIVE OF ILEUS GIVEN FINDINGS ON PRIOR CT. NO EVIDENCE FOR OBSTRUCTION. Assessment & Plan - Diagnosis (1) Hyponatremia Is this a current diagnosis for this admission?: YesPlan: Improving with water restriction. Continue to follow. (2) Inflammatory bowel disease Plan: Given his symptoms is not likely that she has ulcerative colitis. As noted if she does have inflammatory bowel disease it is probably related moderate Crohn' s disease. Would recommend anti-Saccharomyces antibody to be done. Alternatively blood work and be obtained through the [facility] for antibody screening with respect to inflammatory bowel disease (3) Iron deficiency Is this a current diagnosis for this admission?: YesPlan: She may need outpatient follow-up , she may require EGD and colonoscopy (4) Nausea vomiting and diarrhea Is this a current diagnosis for this admission?: YesPlan: Improved with hydration, she can be started on mesalamine product This can be continued as an outpatient. - Time Time Spent with patient: 25-34 minutes
[2016-12-13] MEDS: HEPARIN SOD (PORCINE) 5,000 UNIT/ML 1 ML SYRINGE SUBCUT SCH ×3 (06:19→21:55)
[2016-12-13] MEDS: ASCORBIC ACID 500 MG TABLET PO SCH ×2 (09:57→17:54)
[2016-12-13] MEDS: CHOLECALCIFEROL (D3) 1,000 UNIT TABLET PO SCH (09:57)
[2016-12-13] MEDS: PREDNISONE 20 MG TABLET PO SCH ×4 (09:57→17:55)
[2016-12-13] MEDS: LACTOBACILLUS ACIDOPHILUS 250 MG TAB PO SCH ×2 (09:57→17:53)
[2016-12-13] MEDS: LANSOPRAZOLE 30 MG TAB.RAP.DR PO SCH ×2 (09:58→17:53)
[2016-12-13] MEDS: MESALAMINE 400 MG CAPSULE.DR PO SCH ×4 (09:58→21:55)
[2016-12-13] MEDS: FAMOTIDINE 20 MG TABLET PO SCH ×2 (09:58→21:55)
[2016-12-13] MEDS: HYDROCORTISONE 1% OINTMENT 28.35 GM TP SCH ×2 (10:01→17:55)
[2016-12-13] MEDS: DOCUSATE SODIUM 100 MG CAPSULE PO SCH (10:01)
[2016-12-13] MEDS: POLYETHYLENE GLYCOL 3350 POWDER 17 GM/1 PACKET PO SCH (10:03)
[2016-12-13] MEDS: VITAMINS A AND D OINTMENT 56.7 GM TOP SCH ×2 (10:03→17:55)
--- NOTE | 2016-12-13 15:24 | PDOC PROGRESS REPORT ---
Subjective Progress Note for:: 12/13/16 Subjective:: The patient was seen earlier today on rounds. The patient was unaccompanied with her mother. The patient states she is very weak and cannot even get to the bedside commode without 2 people helping her. The patient's been seen and evaluated by physical therapy. The patient does not appear to be putting out much initiative though. The patient's mother stated that she would be unable to take the patient home therefore will consult social work. The patient has had a good appetite and has had no episodes of vomiting nor diarrhea. The patient appears much better than the last time I saw her. The patient now has coloring her face. The patient's symptoms overall are much improved. Physical Exam Vital Signs: Temp Pulse Resp BP Pulse Ox 98.1 F 107 H 16 106/81 100 12/13/16 12:00 12/13/16 12:00 12/13/16 12:00 12/13/16 12:00 12/13/16 12:00 Intake & Output 12/11/16 12/12/16 12/13/16 23:59 23:59 23:59 Intake Total 860 5 600 Output Total 2500 1200 1500 Balance -1640 -1195 -900 Weight 79.1 kg 80 kg General appearance: PRESENT: no acute distress, cooperative, well-developed, well-nourished Head exam: PRESENT: atraumatic, normocephalic Eye exam: PRESENT: conjunctiva pink, EOMI, PERRLA. ABSENT: scleral icterus Ear exam: PRESENT: normal external ear exam Mouth exam: PRESENT: moist, tongue midline Neck exam: ABSENT: carotid bruit, JVD, lymphadenopathy, thyromegaly Respiratory exam: PRESENT: clear to auscultation richi. ABSENT: rales, rhonchi, wheezes Cardiovascular exam: PRESENT: RRR. ABSENT: diastolic murmur, rubs, systolic murmur Pulses: PRESENT: normal dorsalis pedis pul Vascular exam: PRESENT: normal capillary refill GI/Abdominal exam: PRESENT: normal bowel sounds, soft. ABSENT: distended, guarding, mass, organolmegaly, rebound, tenderness Rectal exam: PRESENT: deferred Extremities exam: PRESENT: full ROM ABSENT: calf tenderness, clubbing, pedal edema Neurological exam: PRESENT: alert, awake, oriented to person, oriented to place , oriented to time, oriented to situation, CN II-XII grossly intact. ABSENT: motor sensory deficit Psychiatric exam: PRESENT: appropriate affect, normal mood. ABSENT: homicidal ideation, suicidal ideation Skin exam: PRESENT: dry, intact, warm. ABSENT: cyanosis, rash Results Laboratory Results: 12/11/16 06:14 12/12/16 06:17 Impressions: Abdomen/Pelvis CT 12/08/16 00:00 IMPRESSION: Scattered air-fluid levels with slightly distended large and small bowel. Very mild inflammation along the descending colon. This is improved when compared to prior study dated November 29. Changes may be related to 8 ileus partial distal small bowel obstruction cannot be excluded. There is no free air. There is free fluid in the pelvis. Abdomen Ultrasound 12/09/16 08:42 IMPRESSION: Fatty liver. No gallstones, gallbladder wall thickening or pericholecystic fluid Small Bowel X-Ray 12/09/16 11:29 IMPRESSION: SOMEWHAT DELAYED TRANSIT OF ORAL CONTRAST THROUGHOUT THE SMALL BOWEL INTO THE COLON SUGGESTIVE OF ILEUS GIVEN FINDINGS ON PRIOR CT. NO EVIDENCE FOR OBSTRUCTION. Assessment & Plan - Diagnosis (1) Inflammatory bowel disease Is this a current diagnosis for this admission?: YesPlan: Unable to further classify this time as there are no previous biopsies available. Currently awaiting serologies. The patient has responded well thus far will continue 5-ASA and follow. (2) Hypoalbuminemia Is this a current diagnosis for this admission?: YesPlan: Will continue high-protein diet (3) Iron deficiency Is this a current diagnosis for this admission?: YesPlan: Secondary to #1 will try to supplement. (4) Hyponatremia Is this a current diagnosis for this admission?: YesPlan: Patient was initially rehydrated with IV normal saline. She is now on free water restriction. Her sodium is improving (5) Depression Qualifiers: Depression Type: unspecified Qualified Code(s): F32.9 - Major depressive disorder, single episode, unspecified Is this a current diagnosis for this admission?: YesPlan: Odd affect (6) Malnutrition Is this a current diagnosis for this admission?: Yes - Time Time Spent with patient: 25-34 minutes Medications reviewed and adjusted accordingly: Yes Anticipated discharge: Home Within: within 24 hours
[2016-12-14] MEDS: HEPARIN SOD (PORCINE) 5,000 UNIT/ML 1 ML SYRINGE SUBCUT SCH ×3 (05:57→22:07)
[2016-12-14] MEDS: ACETAMINOPHEN 325 MG TABLET PO PRN ×2 (08:39→22:13)
[2016-12-14] MEDS: ASCORBIC ACID 500 MG TABLET PO SCH ×2 (09:38→18:23)
[2016-12-14] MEDS: CHOLECALCIFEROL (D3) 1,000 UNIT TABLET PO SCH (09:39)
[2016-12-14] MEDS: LANSOPRAZOLE 30 MG TAB.RAP.DR PO SCH ×2 (09:39→18:23)
[2016-12-14] MEDS: LACTOBACILLUS ACIDOPHILUS 250 MG TAB PO SCH ×2 (09:40→18:23)
[2016-12-14] MEDS: FAMOTIDINE 20 MG TABLET PO SCH ×2 (09:40→22:07)
[2016-12-14] MEDS: PREDNISONE 20 MG TABLET PO SCH ×4 (09:40→18:23)
[2016-12-14] MEDS: MESALAMINE 400 MG CAPSULE.DR PO SCH ×4 (09:41→22:07)
[2016-12-14] MEDS: DOCUSATE SODIUM 100 MG CAPSULE PO SCH (09:42)
[2016-12-14] MEDS: POLYETHYLENE GLYCOL 3350 POWDER 17 GM/1 PACKET PO SCH (09:42)
[2016-12-14] MEDS: VITAMINS A AND D OINTMENT 56.7 GM TOP SCH ×2 (09:58→18:24)
[2016-12-14] MEDS: HYDROCORTISONE 1% OINTMENT 28.35 GM TP SCH ×2 (09:58→18:24)
--- NOTE | 2016-12-14 16:05 | PDOC PROGRESS REPORT ---
Subjective Progress Note for:: 12/14/16 Subjective:: The patient was seen earlier today on rounds. The patient had been seen by social work which have discussed rehabilitation options for the patient and the patient stated that these were "too far away". Given that the patient only has pending Medicaid there were no other options available this time. Remarkably the patient was able to ambulate in the hallway without issue and states her symptoms are dramatically improved. The patient has agreed to be discharged to home. The patient denies any nausea, vomiting, diarrhea, shortness of breath, dizziness, chest pain. Physical Exam Vital Signs: Temp Pulse Resp BP Pulse Ox 98.3 F 85 14 125/80 100 12/14/16 11:33 12/14/16 11:33 12/14/16 11:33 12/14/16 11:33 12/14/16 11:33 Intake & Output 12/12/16 12/13/16 12/14/16 23:59 23:59 23:59 Intake Total 5 1400 1080 Output Total 1200 2800 1950 Balance -1195 -1400 -870 Weight 80 kg 80.2 kg General appearance: PRESENT: no acute distress, cooperative, well-developed, well-nourished Head exam: PRESENT: atraumatic, normocephalic Eye exam: PRESENT: conjunctiva pink, EOMI, PERRLA. ABSENT: scleral icterus Ear exam: PRESENT: normal external ear exam Mouth exam: PRESENT: moist, tongue midline Neck exam: ABSENT: carotid bruit, JVD, lymphadenopathy, thyromegaly Respiratory exam: PRESENT: clear to auscultation richi. ABSENT: rales, rhonchi, wheezes Cardiovascular exam: PRESENT: RRR. ABSENT: diastolic murmur, rubs, systolic murmur Pulses: PRESENT: normal dorsalis pedis pul Vascular exam: PRESENT: normal capillary refill GI/Abdominal exam: PRESENT: normal bowel sounds, soft. ABSENT: distended, guarding, mass, organolmegaly, rebound, tenderness Rectal exam: PRESENT: deferred Extremities exam: PRESENT: full ROM ABSENT: calf tenderness, clubbing, pedal edema Neurological exam: PRESENT: alert, awake, oriented to person, oriented to place , oriented to time, oriented to situation, CN II-XII grossly intact. ABSENT: motor sensory deficit Psychiatric exam: PRESENT: appropriate affect, normal mood. ABSENT: homicidal ideation, suicidal ideation Skin exam: PRESENT: dry, intact, warm. ABSENT: cyanosis, rash Results Laboratory Results: 12/11/16 06:14 12/12/16 06:17 12/12/16 06:17 Serum HCG, Qual NEGATIVE Impressions: Abdomen/Pelvis CT 12/08/16 00:00 IMPRESSION: Scattered air-fluid levels with slightly distended large and small bowel. Very mild inflammation along the descending colon. This is improved when compared to prior study dated November 29. Changes may be related to 8 ileus partial distal small bowel obstruction cannot be excluded. There is no free air. There is free fluid in the pelvis. Abdomen Ultrasound 12/09/16 08:42 IMPRESSION: Fatty liver. No gallstones, gallbladder wall thickening or pericholecystic fluid Small Bowel X-Ray 12/09/16 11:29 IMPRESSION: SOMEWHAT DELAYED TRANSIT OF ORAL CONTRAST THROUGHOUT THE SMALL BOWEL INTO THE COLON SUGGESTIVE OF ILEUS GIVEN FINDINGS ON PRIOR CT. NO EVIDENCE FOR OBSTRUCTION. Assessment & Plan - Diagnosis (1) Inflammatory bowel disease Is this a current diagnosis for this admission?: YesPlan: Unable to further classify this time as there are no previous biopsies available. Currently awaiting serologies. The patient has responded well thus far will continue 5-ASA and follow. (2) Hypoalbuminemia Is this a current diagnosis for this admission?: YesPlan: Will continue high-protein diet (3) Iron deficiency Is this a current diagnosis for this admission?: YesPlan: Secondary to #1 will try to supplement. (4) Hyponatremia Is this a current diagnosis for this admission?: YesPlan: Patient was initially rehydrated with IV normal saline. She is now on free water restriction. Her sodium is improving (5) Depression Qualifiers: Depression Type: unspecified Qualified Code(s): F32.9 - Major depressive disorder, single episode, unspecified Is this a current diagnosis for this admission?: YesPlan: Odd affect (6) Malnutrition Is this a current diagnosis for this admission?: Yes - Time Time Spent with patient: 25-34 minutes Medications reviewed and adjusted accordingly: Yes Anticipated discharge: Home, Home with Homehealth Within: within 24 hours
[2016-12-15] MEDS: HEPARIN SOD (PORCINE) 5,000 UNIT/ML 1 ML SYRINGE SUBCUT SCH (06:45)
[2016-12-15] MEDS: ACETAMINOPHEN 325 MG TABLET PO PRN (09:21)
[2016-12-15] MEDS: CHOLECALCIFEROL (D3) 1,000 UNIT TABLET PO SCH (09:22)
[2016-12-15] MEDS: LACTOBACILLUS ACIDOPHILUS 250 MG TAB PO SCH (09:22)
[2016-12-15] MEDS: PREDNISONE 20 MG TABLET PO SCH ×2 (09:23→09:24)
[2016-12-15] MEDS: MESALAMINE 400 MG CAPSULE.DR PO SCH (09:23)
[2016-12-15] MEDS: FAMOTIDINE 20 MG TABLET PO SCH (09:23)
[2016-12-15] MEDS: ASCORBIC ACID 500 MG TABLET PO SCH (09:23)
[2016-12-15] MEDS: HYDROCORTISONE 1% OINTMENT 28.35 GM TP SCH (09:26)
[2016-12-15] MEDS: DOCUSATE SODIUM 100 MG CAPSULE PO SCH (09:26)
[2016-12-15] MEDS: VITAMINS A AND D OINTMENT 56.7 GM TOP SCH (09:27)
[2016-12-15] MEDS: POLYETHYLENE GLYCOL 3350 POWDER 17 GM/1 PACKET PO SCH (09:27)
[2016-12-15] MEDS: LANSOPRAZOLE 30 MG TAB.RAP.DR PO SCH (09:32)
[2016-12-15 10:47] VITALS: BP 139/92
--- NOTE | 2016-12-15 16:30 | PDOC DISCHARGE SUMMARY ---
General - Admit/Disc Date/PCP Admission Date/Primary Care Provider: 12/09/16 13:20 [facility] Consulting cotton stripper: Dr. James Discharge Date: 12/15/16 - Discharge Diagnosis (1) Inflammatory bowel disease Is this a current diagnosis for this admission?: YesSummary: Most likely Crohn's disease (2) Hypoalbuminemia Is this a current diagnosis for this admission?: Yes (3) Iron deficiency Is this a current diagnosis for this admission?: Yes (4) Hyponatremia Is this a current diagnosis for this admission?: Yes (5) Depression Is this a current diagnosis for this admission?: Yes (6) Malnutrition Is this a current diagnosis for this admission?: Yes - Additional Information Resuscitation Status: Full Code Discharge Diet: As Tolerated, Regular Discharge Activity: Activity As Tolerated, Balance Activity w/Rest Home Medications: Ondansetron [Zofran Odt 4 mg Tablet] 4 mg PO Q4HP PRN 12/07/16 Acetaminophen 1,000 mg PO PRN PRN 12/08/16 Ascorbic Acid [Vitamin C 500 mg Tablet] 500 mg PO BID #60 tablet 12/15/16 Cholecalciferol (Vitamin D3) [Vitamin D3 1000 Unit Tablet] 1,000 unit PO DAILY # 30 tablet 12/15/16 Mesalamine [Pentasa 250 mg Capsule.sa] 500 mg PO TID #180 capsule.sa 12/15/16 Prednisone 10 mg PO DAILY #28 tablet 12/15/16 History of Present Illness Patient complains of: Abdominal pain and weakness History of Present Illness: DARREN KOEHLER is a 46 year old female with an unclear past medical history of inflammatory bowel disease on Humstarks until approximately 3 months ago after relocating from [place] to [place]. Over the last 2-3 weeks she's had early satiety nausea vomiting of gastric content and an unintentional weight loss of an estimated 20 pounds in the last month. She has a flat affect and a gag reflexes is initiated by oral exam and tongue protrusion. She denies any recent medications and otherwise feels profound fatigue. Evaluation the emergency room is concerning for severe malnutrition with an albumin of 1.7 a prealbumin of 5 she is referred to the hospitalist for admission Hospital Course Hospital Course: The patient was admitted to continuous telemetry unit. The patient was hydrated. The patient's diet was slowly advanced into she tolerated a regular diet. The patient was loaded with stress dose steroids. The patient was seen and evaluated by gastroenterology and given the patient's presentation felt that most likely this is a Crohn's disease picture versus ulcerative colitis. As the patient was started on 5-ASA and has had significant improvement of her symptoms with conjunction of steroids. The patient was seen by therapies and was been able to ambulate without assistance. The patient has not had any nausea vomiting nor diarrhea the last 72 hours and feels ready for discharge. Physical Exam Vital Signs: Temp Pulse Resp BP Pulse Ox 97.8 F 86 14 139/92 H 100 12/15/16 11:04 12/15/16 11:04 12/15/16 11:04 12/15/16 11:04 12/15/16 11:04 Intake & Output 12/13/16 12/14/16 12/15/16 23:59 23:59 23:59 Intake Total 1400 1080 110 Output Total 2800 1950 Balance -1400 -870 110 Weight 80 kg 80.2 kg 81.2 kg General appearance: PRESENT: no acute distress, cooperative, well-developed, well-nourished appearing Head exam: PRESENT: atraumatic, normocephalic Eye exam: PRESENT: conjunctiva pink, EOMI, PERRLA. ABSENT: scleral icterus Ear exam: PRESENT: normal external ear exam Mouth exam: PRESENT: moist, tongue midline Neck exam: ABSENT: carotid bruit, JVD, lymphadenopathy, thyromegaly Respiratory exam: PRESENT: clear to auscultation richi. ABSENT: rales, rhonchi, wheezes Cardiovascular exam: PRESENT: RRR. ABSENT: diastolic murmur, rubs, systolic murmur Pulses: PRESENT: normal dorsalis pedis pul Vascular exam: PRESENT: normal capillary refill GI/Abdominal exam: PRESENT: normal bowel sounds, soft. ABSENT: distended, guarding, mass, organolmegaly, rebound, tenderness Rectal exam: PRESENT: deferred Extremities exam: PRESENT: full ROM ABSENT: calf tenderness, clubbing, pedal edema Neurological exam: PRESENT: alert, awake, oriented to person, oriented to place , oriented to time, oriented to situation, CN II-XII grossly intact. ABSENT: motor sensory deficit Psychiatric exam: PRESENT: appropriate affect, normal mood. ABSENT: homicidal ideation, suicidal ideation Skin exam: PRESENT: dry, intact, warm. ABSENT: cyanosis, rash Results Laboratory Results: Labs- Last Values WBC 5.2 10^3/uL (4.0-10.5) 12/11/16 06:14 RBC 4.43 10^6/uL (3.72-5.28) 12/11/16 06:14 Hgb 10.7 g/dL (12.0-15.5) L 12/11/16 06:14 Hct 33.2 % (36.0-47.0) L 12/11/16 06:14 MCV 75 fl (80-97) L 12/11/16 06:14 MCH 24.2 pg (27.0-33.4) L 12/11/16 06:14 MCHC 32.3 g/dL (32.0-36.0) 12/11/16 06:14 RDW 17.3 % (11.5-14.0) H 12/11/16 06:14 Plt Count 455 10^3/uL (150-450) H 12/11/16 06:14 Seg Neutrophils % 87.0 % (42-78) H 12/11/16 06:14 Lymphocytes % 6.2 % (13-45) L 12/11/16 06:14 Monocytes % 6.7 % (3-13) 12/11/16 06:14 Eosinophils % 0.0 % (0-6) 12/11/16 06:14 Basophils % 0.1 % (0-2) 12/11/16 06:14 Absolute Neutrophils 4.5 10^3/uL (1.7-8.2) 12/11/16 06:14 Absolute Lymphocytes 0.3 10^3/uL (0.5-4.7) L 12/11/16 06:14 Absolute Monocytes 0.3 10^3/uL (0.1-1.4) 12/11/16 06:14 Absolute Eosinophils 0.0 10^3/uL (0.0-0.6) 12/11/16 06:14 Absolute Basophils 0.0 10^3/uL (0.0-0.2) 12/11/16 06:14 ESR 14 mm/hr (0-20) 12/07/16 17:09 Sodium 136.0 mmol/L (137-145) L 12/12/16 06:17 Potassium 4.6 mmol/L (3.6-5.0) 12/12/16 06:17 Chloride 102 mmol/L (98-107) 12/12/16 06:17 Carbon Dioxide 26 mmol/L (22-30) 12/12/16 06:17 Anion Gap 8 (5-19) 12/12/16 06:17 BUN 16 mg/dL (7-20) 12/12/16 06:17 Creatinine 0.53 mg/dL (0.52-1.25) 12/12/16 06:17 Est GFR ( Amer) > 60 (>60) 12/12/16 06:17 Est GFR (Non-Af Amer) > 60 (>60) 12/12/16 06:17 Glucose 123 mg/dL (75-110) H 12/12/16 06:17 Calcium 8.0 mg/dL (8.4-10.2) L 12/12/16 06:17 Phosphorus 3.0 mg/dL (2.5-4.5) 12/07/16 22:40 Magnesium 1.8 mg/dL (1.6-2.3) 12/07/16 17:09 Total Bilirubin 0.3 mg/dL (0.2-1.3) 12/10/16 06:24 Direct Bilirubin 0.0 mg/dL (0.0-0.3) 12/10/16 06:24 AST 13 U/L (14-36) L 12/10/16 06:24 ALT 22 U/L (9-52) 12/10/16 06:24 Alkaline Phosphatase 94 U/L (38-126) 12/10/16 06:24 Total Protein 4.8 g/dL (6.3-8.2) L 12/10/16 06:24 Albumin 1.9 g/dL (3.5-5.0) L 12/10/16 06:24 Prealbumin 5.1 mg/dL (17.6-36.0) L 12/07/16 22:40 Lipase < 10.0 U/L (23-300) L 12/07/16 17:09 Vitamin D 25-Hydroxy 14.2 ng/mL (30.0-100.0) L 12/08/16 05:19 TSH 1.54 uIU/mL (0.47-4.68) 12/07/16 22:40 Serum HCG, Qual NEGATIVE (NEGATIVE) 12/12/16 06:17 Random Cortisol 20.90 ug/dL (None Established) 12/07/16 22:40 Urine Color YELLOW 12/08/16 04:33 Urine Appearance SLIGHTLY-CLOUDY 12/08/16 04:33 Urine pH 6.0 (5.0-9.0) 12/08/16 04:33 Ur Specific [place] 1.008 12/08/16 04:33 Urine Protein NEGATIVE mg/dL (NEGATIVE) 12/08/16 04:33 Urine Glucose (UA) 150 mg/dL (NEGATIVE) H 12/08/16 04:33 Urine Ketones NEGATIVE mg/dL (NEGATIVE) 12/08/16 04:33 Urine Blood NEGATIVE (NEGATIVE) 12/08/16 04:33 Urine Nitrite NEGATIVE (NEGATIVE) 12/08/16 04:33 Urine Bilirubin NEGATIVE (NEGATIVE) 12/08/16 04:33 Urine Urobilinogen NEGATIVE mg/dL (<2.0) 12/08/16 04:33 Ur Leukocyte Esterase NEGATIVE (NEGATIVE) 12/08/16 04:33 Urine WBC (Auto) 7 /HPF 12/08/16 04:33 Urine RBC (Auto) 0 /HPF 12/08/16 04:33 Squamous Epi Cells Auto <1 /HPF 12/08/16 04:33 Urine Mucus (Auto) OCC /LPF 12/08/16 04:33 Urine Ascorbic Acid NEGATIVE (NEGATIVE) 12/08/16 04:33 Stool Occult Blood NEGATIVE (NEGATIVE) 12/08/16 04:33 Stool for White Cells MANY H 12/08/16 04:33 Impressions: Abdomen/Pelvis CT 12/08/16 00:00 IMPRESSION: Scattered air-fluid levels with slightly distended large and small bowel. Very mild inflammation along the descending colon. This is improved when compared to prior study dated November 29. Changes may be related to 8 ileus partial distal small bowel obstruction cannot be excluded. There is no free air. There is free fluid in the pelvis. Abdomen Ultrasound 12/09/16 08:42 IMPRESSION: Fatty liver. No gallstones, gallbladder wall thickening or pericholecystic fluid Small Bowel X-Ray 12/09/16 11:29 IMPRESSION: SOMEWHAT DELAYED TRANSIT OF ORAL CONTRAST THROUGHOUT THE SMALL BOWEL INTO THE COLON SUGGESTIVE OF ILEUS GIVEN FINDINGS ON PRIOR CT. NO EVIDENCE FOR OBSTRUCTION. Qualifiers PATEINT BEING DISCHARGED WITH ANY OF THE FOLLOWING DIAGNOSIS?: No Plan Time Spent: Less than 30 Minutes
== END 2016-12-15 11:40 | disposition home or self-care (01) | DRG 386 ==
LOC: ER 16:41 → EH 19:58 → 4S 21:45 → OBSVTOIN 12-09 13:20
PROVIDERS: ADMIT Internal Medicine; ATTEND Internal Medicine
DX: K50.90 Crohn's disease, unspecified, without complications (principal); E46 Unspecified protein-calorie malnutrition; E87.1 Hypo-osmolality and hyponatremia; K56.7 Ileus, unspecified; D50.9 Iron deficiency anemia, unspecified; F32.9 Major depressive disorder, single episode, unspecified; E88.09 Other disorders of plasma-protein metabolism, not elsewhere classified; R33.9 Retention of urine, unspecified; Z68.28 Body mass index [BMI] 28.0-28.9, adult
CPT/HCPCS: 36415; 74176; 74250; 76705; 80048; 80053; 81001; 82272; 82306; 82533; 83690; 83735; 84100; 84134; 84443; 84703; 85025; 85652; 87045; 87205; 89055; 96365; 96375; 99285; G0378; J0610; J1644; J2405; J2930; J3490; J7030; J7512

== ENCOUNTER → 2017-05-10 | Outpatient (CLI) | payer OTHER ==
[2017-05-10 10:27] LABS: ABSOLUTE BASOPHILS # (AUTO) 0.1 10^3/uL (0.0-0.2); ABSOLUTE EOSINOPHILS # (AUTO) 0.1 10^3/uL (0.0-0.6); ABSOLUTE MONOCYTES (AUTO) 0.6 10^3/uL (0.1-1.4); ABSOLUTE NEUT (AUTO) 4.5 10^3/uL (1.7-8.2); EOSINOPHILS % (AUTO) 2.2 % (0-6); HEMATOCRIT 41.5 % (36.0-47.0); HEMOGLOBIN 13.3 g/dL (12.0-15.5); HGB HCT DIFFERENCE -1.6; LYMPHOCYTES % (AUTO) 15.6 % (13-45); MEAN CORPUSCULAR HEMOGLOBIN 26.6 pg (27.0-33.4); MEAN CORPUSCULAR HGB CONC 32.1 g/dL (32.0-36.0); MEAN CORPUSCULAR VOLUME 83 fl (80-97); MONOCYTES % (AUTO) 9.4 % (3-13); SEGMENTED NEUTROPHILS % (AUTO) 71.8 % (42-78); WHITE BLOOD COUNT 6.3 10^3/uL (4.0-10.5)
[2017-05-10 11:16] LABS: ERYTHROCYTE SEDIMENTATION RATE 8 mm/hr (0-20)
[2017-05-10 11:24] LABS: ALANINE AMINOTRANSFERASE 55 U/L (9-52); ALBUMIN 4.2 g/dL (3.5-5.0); ALKALINE PHOSPHATASE 60 U/L (38-126); ANION GAP 9 (5-19); ASPARTATE AMINO TRANSFERASE 30 U/L (14-36); BILIRUBIN,DIRECT 0.3 mg/dL (0.0-0.4); BILIRUBIN,TOTAL 0.5 mg/dL (0.2-1.3); BLOOD UREA NITROGEN 15 mg/dL (7-20); CALCIUM 9.2 mg/dL (8.4-10.2); CARBON DIOXIDE 27 mmol/L (22-30); CHLORIDE 102 mmol/L (98-107); GLUCOSE 86 mg/dL (75-110); POTASSIUM 4.7 mmol/L (3.6-5.0); SODIUM 138.1 mmol/L (137-145); TOTAL PROTEIN 7.4 g/dL (6.3-8.2)
== END ==
LOC: CCC 10:07
DX: K50.90 Crohn's disease, unspecified, without complications (principal)
CPT/HCPCS: 36415; 80053; 83036; 84443; 85025; 85652

== ENCOUNTER → 2017-10-10 | Outpatient (CLI) | payer OTHER ==
[2017-10-10 11:14] LABS: ABSOLUTE BASOPHILS # (AUTO) 0.1 10^3/uL (0.0-0.2); ABSOLUTE EOSINOPHILS # (AUTO) 0.1 10^3/uL (0.0-0.6); ABSOLUTE LYMPHOCYTES (AUTO) 1.7 10^3/uL (0.5-4.7); ABSOLUTE MONOCYTES (AUTO) 0.6 10^3/uL (0.1-1.4); ABSOLUTE NEUT (AUTO) 3.2 10^3/uL (1.7-8.2); BASOPHILS % (AUTO) 0.9 % (0-2); EOSINOPHILS % (AUTO) 2.5 % (0-6); HEMATOCRIT 42.3 % (36.0-47.0); HEMOGLOBIN 14.3 g/dL (12.0-15.5); HGB HCT DIFFERENCE 0.6; LYMPHOCYTES % (AUTO) 30.2 % (13-45); MEAN CORPUSCULAR HEMOGLOBIN 31.2 pg (27.0-33.4); MEAN CORPUSCULAR HGB CONC 33.8 g/dL (32.0-36.0); MEAN CORPUSCULAR VOLUME 92 fl (80-97); MONOCYTES % (AUTO) 11.1 % (3-13); RED BLOOD COUNT 4.59 10^6/uL (3.72-5.28); SEGMENTED NEUTROPHILS % (AUTO) 55.3 % (42-78); WHITE BLOOD COUNT 5.7 10^3/uL (4.0-10.5)
[2017-10-10 11:42] LABS: ALANINE AMINOTRANSFERASE 31 U/L (9-52); ALBUMIN 4.3 g/dL (3.5-5.0); ALKALINE PHOSPHATASE 46 U/L (38-126); ANION GAP 11 (5-19); ASPARTATE AMINO TRANSFERASE 17 U/L (14-36); BILIRUBIN,DIRECT 0.2 mg/dL (0.0-0.4); BILIRUBIN,TOTAL 0.4 mg/dL (0.2-1.3); BLOOD UREA NITROGEN 14 mg/dL (7-20); CALCIUM 9.5 mg/dL (8.4-10.2); CARBON DIOXIDE 28 mmol/L (22-30); CHLORIDE 102 mmol/L (98-107); CREATININE RESULT 0.63 mg/dL (0.52-1.25); POTASSIUM 4.4 mmol/L (3.6-5.0); SODIUM 141.1 mmol/L (137-145)
[2017-10-10 11:43] LABS: GLUCOSE 75 mg/dL (75-110)
[2017-10-10 12:04] LABS: ERYTHROCYTE SEDIMENTATION RATE 7 mm/hr (0-20)
== END ==
LOC: CCC 10:01
DX: K51.519 Left sided colitis with unspecified complications (principal); Z79.899 Other long term (current) drug therapy
CPT/HCPCS: 36415; 80053; 85025; 85652

== ENCOUNTER → 2018-01-04 | Outpatient (CLI) | payer OTHER ==
[2018-01-04 14:45] LABS: ABSOLUTE BASOPHILS # (AUTO) 0.1 10^3/uL (0.0-0.2); ABSOLUTE EOSINOPHILS # (AUTO) 0.2 10^3/uL (0.0-0.6); ABSOLUTE LYMPHOCYTES (AUTO) 1.5 10^3/uL (0.5-4.7); ABSOLUTE MONOCYTES (AUTO) 0.4 10^3/uL (0.1-1.4); ABSOLUTE NEUT (AUTO) 2.8 10^3/uL (1.7-8.2); BASOPHILS % (AUTO) 1.2 % (0-2); EOSINOPHILS % (AUTO) 3.1 % (0-6); HEMATOCRIT 43.6 % (36.0-47.0); HEMOGLOBIN 14.7 g/dL (12.0-15.5); LYMPHOCYTES % (AUTO) 30.2 % (13-45); MEAN CORPUSCULAR HEMOGLOBIN 31.5 pg (27.0-33.4); MEAN CORPUSCULAR HGB CONC 33.8 g/dL (32.0-36.0); MEAN CORPUSCULAR VOLUME 93 fl (80-97); MONOCYTES % (AUTO) 7.9 % (3-13); PLATELET COUNT 184 10^3/uL (150-450); RED BLOOD COUNT 4.68 10^6/uL (3.72-5.28); RED CELL DISTRIBUTION WIDTH 12.5 % (11.5-14.0); SEGMENTED NEUTROPHILS % (AUTO) 57.6 % (42-78); TOTAL CELLS COUNTED % (AUTO) 100 %; WHITE BLOOD COUNT 4.9 10^3/uL (4.0-10.5)
[2018-01-04 15:10] LABS: ALANINE AMINOTRANSFERASE 39 U/L (9-52); ALBUMIN 4.2 g/dL (3.5-5.0); ALKALINE PHOSPHATASE 45 U/L (38-126); ANION GAP 9 (5-19); ASPARTATE AMINO TRANSFERASE 17 U/L (14-36); BILIRUBIN,DIRECT 0.4 mg/dL (0.0-0.4); BILIRUBIN,TOTAL 0.4 mg/dL (0.2-1.3); BLOOD UREA NITROGEN 12 mg/dL (7-20); CALCIUM 9.5 mg/dL (8.4-10.2); CARBON DIOXIDE 26 mmol/L (22-30); CHLORIDE 107 mmol/L (98-107); GLUCOSE 111 mg/dL (75-110); POTASSIUM 4.3 mmol/L (3.6-5.0); SODIUM 142.2 mmol/L (137-145); TOTAL PROTEIN 6.9 g/dL (6.3-8.2)
[2018-01-04 15:21] LABS: ERYTHROCYTE SEDIMENTATION RATE 5 mm/hr (0-20)
== END ==
LOC: CCC 14:04
DX: K51.519 Left sided colitis with unspecified complications (principal); Z79.899 Other long term (current) drug therapy
CPT/HCPCS: 36415; 80053; 85025; 85652

== ENCOUNTER → 2018-07-23 | Outpatient (CLI) | payer OTHER ==
[2018-07-23 12:07] LABS: ABSOLUTE BASOPHILS # (AUTO) 0.1 10^3/uL (0.0-0.2); ABSOLUTE EOSINOPHILS # (AUTO) 0.2 10^3/uL (0.0-0.6); ABSOLUTE LYMPHOCYTES (AUTO) 1.4 10^3/uL (0.5-4.7); ABSOLUTE MONOCYTES (AUTO) 0.5 10^3/uL (0.1-1.4); ABSOLUTE NEUT (AUTO) 2.9 10^3/uL (1.7-8.2); BASOPHILS % (AUTO) 1.1 % (0-2); EOSINOPHILS % (AUTO) 4.6 % (0-6); HEMATOCRIT 43.9 % (36.0-47.0); HEMOGLOBIN 15.1 g/dL (12.0-15.5); LYMPHOCYTES % (AUTO) 28.1 % (13-45); MEAN CORPUSCULAR HEMOGLOBIN 31.3 pg (27.0-33.4); MEAN CORPUSCULAR HGB CONC 34.3 g/dL (32.0-36.0); MEAN CORPUSCULAR VOLUME 91 fl (80-97); MONOCYTES % (AUTO) 9.2 % (3-13); PLATELET COUNT 184 10^3/uL (150-450); RED BLOOD COUNT 4.81 10^6/uL (3.72-5.28); RED CELL DISTRIBUTION WIDTH 12.8 % (11.5-14.0); TOTAL CELLS COUNTED % (AUTO) 100 %; WHITE BLOOD COUNT 5.1 10^3/uL (4.0-10.5)
[2018-07-23 12:23] LABS: ALBUMIN 4.4 g/dL (3.5-5.0); ALKALINE PHOSPHATASE 45 U/L (38-126); ANION GAP 9 (5-19); ASPARTATE AMINO TRANSFERASE 22 U/L (14-36); BILIRUBIN,DIRECT 0.2 mg/dL (0.0-0.4); BILIRUBIN,TOTAL 0.7 mg/dL (0.2-1.3); BLOOD UREA NITROGEN 10 mg/dL (7-20); CARBON DIOXIDE 29 mmol/L (22-30); CHLORIDE 103 mmol/L (98-107); GLUCOSE 92 mg/dL (75-110); SODIUM 140.7 mmol/L (137-145)
[2018-07-23 12:25] LABS: ALANINE AMINOTRANSFERASE 36 U/L (9-52); POTASSIUM 4.9 mmol/L (3.6-5.0)
== END ==
LOC: CCC 11:26
DX: I10 Essential (primary) hypertension (principal); K50.919 Crohn's disease, unspecified, with unspecified complications
CPT/HCPCS: 36415; 80053; 85025

== ENCOUNTER → 2018-12-31 | Outpatient (CLI) | payer OTHER ==
[2018-12-31 11:50] LABS: ABSOLUTE BASOPHILS # (AUTO) 0.1 10^3/uL (0.0-0.2); ABSOLUTE EOSINOPHILS # (AUTO) 0.3 10^3/uL (0.0-0.6); ABSOLUTE LYMPHOCYTES (AUTO) 1.4 10^3/uL (0.5-4.7); ABSOLUTE MONOCYTES (AUTO) 0.6 10^3/uL (0.1-1.4); ABSOLUTE NEUT (AUTO) 3.5 10^3/uL (1.7-8.2); BASOPHILS % (AUTO) 1.3 % (0-2); EOSINOPHILS % (AUTO) 4.9 % (0-6); HEMATOCRIT 41.1 % (36.0-47.0); LYMPHOCYTES % (AUTO) 24.1 % (13-45); MEAN CORPUSCULAR HEMOGLOBIN 31.4 pg (27.0-33.4); MEAN CORPUSCULAR HGB CONC 34.2 g/dL (32.0-36.0); MEAN CORPUSCULAR VOLUME 92 fl (80-97); PLATELET COUNT 205 10^3/uL (150-450); RED BLOOD COUNT 4.47 10^6/uL (3.72-5.28); RED CELL DISTRIBUTION WIDTH 13.4 % (11.5-14.0); SEGMENTED NEUTROPHILS % (AUTO) 59.7 % (42-78); TOTAL CELLS COUNTED % (AUTO) 100 %; WHITE BLOOD COUNT 5.8 10^3/uL (4.0-10.5)
[2018-12-31 12:15] LABS: ALANINE AMINOTRANSFERASE 37 U/L (9-52); ALBUMIN 4.3 g/dL (3.5-5.0); ALKALINE PHOSPHATASE 46 U/L (38-126); ASPARTATE AMINO TRANSFERASE 23 U/L (14-36); BILIRUBIN,DIRECT 0.1 mg/dL (0.0-0.4); BILIRUBIN,TOTAL 0.5 mg/dL (0.2-1.3); TOTAL PROTEIN 6.3 g/dL (6.3-8.2)
== END ==
LOC: CCC 10:56
DX: K51.50 Left sided colitis without complications (principal); Z79.899 Other long term (current) drug therapy
CPT/HCPCS: 36415; 80076; 85025

== ENCOUNTER → 2019-04-05 | Outpatient (CLI) | payer OTHER ==
[2019-04-05 10:29] LABS: ABSOLUTE BASOPHILS # (AUTO) 0.1 10^3/uL (0.0-0.2); ABSOLUTE EOSINOPHILS # (AUTO) 0.4 10^3/uL (0.0-0.6); ABSOLUTE LYMPHOCYTES (AUTO) 1.4 10^3/uL (0.5-4.7); ABSOLUTE MONOCYTES (AUTO) 0.6 10^3/uL (0.1-1.4); ABSOLUTE NEUT (AUTO) 3.7 10^3/uL (1.7-8.2); BASOPHILS % (AUTO) 1.2 % (0-2); HEMATOCRIT 42.1 % (36.0-47.0); HEMOGLOBIN 14.2 g/dL (12.0-15.5); LYMPHOCYTES % (AUTO) 22.4 % (13-45); MEAN CORPUSCULAR HEMOGLOBIN 30.8 pg (27.0-33.4); MEAN CORPUSCULAR HGB CONC 33.6 g/dL (32.0-36.0); MEAN CORPUSCULAR VOLUME 92 fl (80-97); MONOCYTES % (AUTO) 9.4 % (3-13); PLATELET COUNT 197 10^3/uL (150-450); RED BLOOD COUNT 4.59 10^6/uL (3.72-5.28); RED CELL DISTRIBUTION WIDTH 13.6 % (11.5-14.0); TOTAL CELLS COUNTED % (AUTO) 100 %; WHITE BLOOD COUNT 6.1 10^3/uL (4.0-10.5)
--- NOTE | 2019-04-05 10:34 | RADIOLOGY REPORT (SQ) ---
EXAM DESCRIPTION: HAND LEFT 2 VIEWS COMPLETED DATE/TIME: 04/05/2019 10:21 am REASON FOR STUDY: PAIN IN LEFT FINGER(S) K50.90 CROHN'S DISEASE, UNSPECIFIED, WITHOUT COMPLICATIONS M79.645 PAIN IN LEFT FINGER(S) COMPARISON: None. EXAM PARAMETERS: NUMBER OF VIEWS: Two view. TECHNIQUE: AP and lateral radiographic images acquired of the left hand. LIMITATIONS: None. FINDINGS: MINERALIZATION: Normal. BONES: No acute fracture or dislocation. No worrisome bone lesions. JOINTS: No effusions. SOFT TISSUES: No soft tissue swelling. No foreign body. OTHER: No other significant finding. IMPRESSION: NEGATIVE STUDY OF THE LEFT HAND. NO RADIOGRAPHIC EVIDENCE OF ACUTE INJURY. TECHNICAL DOCUMENTATION: JOB ID: [id number] [employer]- All Rights Reserved Reading location - IP/workstation name: [email or web address]
[2019-04-05 11:02] LABS: ALANINE AMINOTRANSFERASE 28 U/L (9-52); ALBUMIN 3.9 g/dL (3.5-5.0); ALKALINE PHOSPHATASE 44 U/L (38-126); ANION GAP 7 (5-19); ASPARTATE AMINO TRANSFERASE 19 U/L (14-36); BILIRUBIN,DIRECT 0.2 mg/dL (0.0-0.4); BILIRUBIN,TOTAL 0.6 mg/dL (0.2-1.3); BLOOD UREA NITROGEN 15 mg/dL (7-20); C-REACTIVE PROTEIN 9.7 mg/L (<10.0); CARBON DIOXIDE 27 mmol/L (22-30); CHLORIDE 105 mmol/L (98-107); CHOLESTEROL 153.37 mg/dL (0-200); GLUCOSE 99 mg/dL (75-110); POTASSIUM 4.7 mmol/L (3.6-5.0); SODIUM 138.6 mmol/L (137-145); TOTAL PROTEIN 6.3 g/dL (6.3-8.2); TRIGLYCERIDES 108 mg/dL (<150)
[2019-04-05 11:08] LABS: ERYTHROCYTE SEDIMENTATION RATE 7 mm/hr (0-20)
[2019-04-05 11:24] LABS: DIRECT LDL 91 mg/dL (<100)
== END ==
LOC: CCC 09:45
DX: M79.645 Pain in left finger(s) (principal); K50.90 Crohn's disease, unspecified, without complications
CPT/HCPCS: 36415; 80053; 80061; 82306; 83036; 84443; 85025; 85652; 86140

== ENCOUNTER → 2019-04-30 | Outpatient (CLI) | payer OTHER ==
--- NOTE | 2019-04-30 10:50 | WOMENS IMAGING REPORT ---
EXAM DESCRIPTION: BILAT SCREENING MAMMO W/CAD COMPLETED DATE/TIME: 04/30/2019 9:01 am REASON FOR STUDY: Z12.31 ENCOUNTER FOR SCREENING MAMMOGRAM FOR MALIGNANT NEOPLASM OF BREAST Z12.31 ENCNTR SCREEN MAMMOGRAM FOR MALIGNANT NEOPLASM OF GISELA COMPARISON: None. EXAM PARAMETERS: Standard craniocaudal and mediolateral oblique views of each breast recorded using digital acquisition. Read with the assistance of CAD. .[facility] - [employer] Chief Librarian Work With Blind Version 9.2 LIMITATIONS: None. FINDINGS: No suspicious masses, suspicious calcifications or architectural distortion. No areas of c oncern. IMPRESSION: Negative MAMMOGRAM. BIRADS 1 BREAST DENSITY: b. There are scattered areas of fibroglandular density. BIRAD: ASSESSMENT: 1 NEGATIVE RECOMMENDATION: ROUTINE SCREENING COMMENT: The patient has been notified of the results by letter per MQSA requirements. Additional no tification policies are in place for contacting patient with suspicious or incomplete findings. Quality ID #225: The [employer] recommends an annual screening mammogram for women aged 40 years or over. This facility utilizes a reminder system to ensure that all patients receive reminder letters, and/or direct phone calls for appointments. This includes reminders for routine scr eening mammograms, diagnostic mammograms, or other Breast Imaging Interventions when appropriate. Th is patient will be placed in the appropriate reminder system. TECHNICAL DOCUMENTATION: FINDING NUMBER: (1) ASSESSMENT: (1) JOB ID: [id number] [employer]- All Rights Reserved Reading location - IP/workstation name: [email or web address]
== END ==
LOC: WI 08:20
DX: Z12.31 Encounter for screening mammogram for malignant neoplasm of breast (principal)
CPT/HCPCS: 77067

== ENCOUNTER 2019-08-02 09:57 | Emergency (ER) | payer OTHER ==
[2019-08-02] MEDS ORDERED: KETOROLAC TROMETHAMINE INJ/PF 30 MG/1 ML SDV IM ONE (10:04)
--- NOTE | 2019-08-02 10:06 | ER Document Report ---
ED Medical Screen (RME) - General Stated Complaint: NECK PAIN Time Seen by Provider: 08/02/19 10:00 Primary Care Provider: RISHI HOLLIS [Primary Care Provider] - Follow up as needed TRAVEL OUTSIDE OF THE [place] IN LAST 30 DAYS: No - HPI Notes: 08/02/19 10:05 Patient is a 48-year-old female who presents complaining of midline neck pain near C4-5 that began yesterday when she woke up. Patient states that she does feel like her neck is a little stiff as well. Hyperextension does increase her pain. Pain does not radiate otherwise. She has not had any recent illness or fever. I have treated and performed a rapid initial assessment of this patient. A comprehensive ED assessment and evaluation of the patient, analysis of test results and completion of medical decision making process will be conducted by additional ED providers. PHYSICAL EXAMINATION: GENERAL: Well-appearing, well-nourished and in no acute distress. A&Ox4. Answers questions appropriately. Neck: FROM. Strength 5+/5. + reproducible tenderness to midline palp near C4- 5. No significant paraspinal tenderness noted. Spurling negative. UE's intact with strength and to N/V. - Related Data Allergies/Adverse Reactions: diphenhydramine [From Benadryl] Allergy (Verified 08/02/19 10:02) metronidazole [From Flagyl] Allergy (Verified 08/02/19 10:02) Past Medical History Renal/ Medical History: Denies: Hx Peritoneal Dialysis GI Medical History: Reports: Hx Ulcerative Colitis Psychiatric Medical History: Reports: Hx Depression Past Surgical History: Reports: Hx Abdominal Surgery - anal fissure repair Doctor's Discharge - Discharge Referrals: RISHI HOLLIS [Primary Care Provider] - Follow up as needed
--- NOTE | 2019-08-02 10:43 | RADIOLOGY REPORT (SQ) ---
EXAM DESCRIPTION: CERV SP 4 OR 5 VIEWS COMPLETED DATE/TIME: 08/02/2019 10:25 am REASON FOR STUDY: midline neck pain near C4-5 w/o injury COMPARISON: None. NUMBER OF VIEWS: Five views. TECHNIQUE: AP, lateral, obliques and odontoid radiographic images acquired of the cervical spine. LIMITATIONS: None. FINDINGS: MINERALIZATION: Normal. ALIGNMENT: Anatomic. VERTEBRAE: Vertebral bodies of normal height. DISCS: Multilevel endplate change and mild osteophytosis. Disc spaces are relatively well-maintained . FORAMINA: Mild multilevel osteophytosis. No bulky anterior or posterior projecting osteophytes mild- to-moderate osseous neural foraminal narrowing at C3-4 and and C4-5 secondary to uncovertebral and fa cet disease, left greater than right. LATERAL AND POSTERIOR ELEMENTS: Facets, lateral masses and spinous processes without significant find ings. HARDWARE: None in the spine. SOFT TISSUES: No masses or calcifications. Lung apices clear. OTHER: No other significant finding. IMPRESSION: No evidence of acute bony abnormality of the cervical spine. [id number] bilateral osseous neural foraminal narrowing at C3-4 and C4-5 secondary to uncoverte bral and facet hypertrophy, left greater than right. TECHNICAL DOCUMENTATION: JOB ID: [id number] [employer]: [employer]- All Rights Reserved Reading location - IP/workstation name: [email or web address]
--- NOTE | 2019-08-02 11:35 | ER Document Report ---
HPI - HPI Time Seen by Provider: 08/02/19 10:00 Pain Level: 3 Context: Patient is a 48-year-old female with history of Crohn's and Antonio's disease who presents the emergency department with neck pain. She said she woke up yesterday and felt she had neck pain. She was taking ibuprofen and Tylenol, but was only taking 400 mg of ibuprofen and 200 mg of Tylenol for her pain. She received Toradol in triage, and states that it is a little better. She would only take it as needed not [id number]. Patient is currently taking the last main, metoprolol, Alavert, fluoxetine, and Humira. - CONSTITUTIONAL Constitutional: DENIES: Fever, Chills - EENT EENT: DENIES: Sore Throat, Ear Pain, Nasal Drainage-Clear, Nasal Drainage- Purulent, Congestion, Eye problems - NEURO Neurology: DENIES: Headache, Weakness, Vision blurred - CARDIOVASCULAR Cardiovascular: DENIES: Chest pain - RESPIRATORY Respiratory: DENIES: Trouble Breathing, Coughing - GASTROINTESTINAL Gastrointestinal: DENIES: Abdominal Pain - REPRODUCTIVE Reproductive: DENIES: : - MUSCULOSKELETAL Musculoskeletal: REPORTS: Neck Pain. DENIES: Extremity pain, Back Pain, Swelling - DERM Skin Color: Normal Skin Problems: None Past Medical History - General Information source: Patient - Social History Smoking Status: Never Smoker Chew tobacco use (# tins/day): No Frequency of alcohol use: None Drug Abuse: None Family History: Hypertension Patient has suicidal ideation: No Patient has homicidal ideation: No Renal/ Medical History: Denies: Hx Peritoneal Dialysis GI Medical History: Reports: Hx Ulcerative Colitis Psychiatric Medical History: Reports: Hx Depression Past Surgical History: Reports: Hx Abdominal Surgery - anal fissure repair - Immunizations Hx Pneumococcal Vaccination: 10/23/14 Vertical Provider Document - CONSTITUTIONAL Agree With Documented VS: Yes Exam Limitations: No Limitations General Appearance: No Apparent Distress - INFECTION CONTROL TRAVEL OUTSIDE OF THE [place] IN LAST 30 DAYS: No - HEENT HEENT: Atraumatic, Normocephalic, PERRLA - NECK Neck: Normal Inspection, Supple, Other Notes: Tenderness to bilateral sides of posterior neck - RESPIRATORY Respiratory: Breath Sounds Normal, No Respiratory Distress - CARDIOVASCULAR Cardiovascular: Regular Rate, Regular Rhythm Pulses: Normal: Radial - MUSCULOSKELETAL/EXTREMETIES Musculoskeletal/Extremeties: FROM, Tender - Bilateral sides of posterior neck - NEURO Level of Consciousness: Awake, Alert, Appropriate Motor/Sensory: No Motor Deficit, No Sensory Deficit - DERM Integumentary: Warm, Dry, No Rash Course - Re-evaluation Re-evalutation: 08/02/19 Patient's x-ray ordered in triage shows that she has narrowing at C3-4 and C4-5. 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 She will follow-up with her autoimmune doctor and primary care doctor in regards to this visit. She will be treated with ibuprofen and Tylenol for pain relief. I instructed her on the correct amount of milligrams to take. A very low suspicion for meningitis, or any life-threatening etiology at this time. Follow-up precautions were given. Verbal discharge instructions were given to the patient. They verbalized understanding. They are stable for discharge. - Vital Signs Vital signs: Temp Pulse Resp BP Pulse Ox 98.2 F 65 18 118/72 98 08/02/19 10:00 08/02/19 10:00 08/02/19 10:00 08/02/19 10:00 08/02/19 10:00 Discharge - Discharge Clinical Impression: Neck pain Condition: Stable Disposition: HOME, SELF-CARE Additional Instructions: You are seen today in the emergency department for neck pain. Your x-ray shows that you have narrowing at the 3-4 and C4-5. Please follow-up with your primary care provider in regards to this visit. Please take acetaminophen 1000 mg and ibuprofen 600 mg every 6 hours for your pain. Please follow-up with your autoimmune provider in regards to this visit. Forms: Return to Work Referrals: [facility] [Primary Care Provider] - Follow up in 3-5 days
[2019-08-02] MEDS ORDERED: ACETAMINOPHEN 325 MG TABLET PO ONE (11:46)
[2019-08-02 12:02] VITALS: BP 120/74
== END 2019-08-02 12:04 | disposition home or self-care (01) ==
LOC: ER 09:57
DX: M54.2 Cervicalgia (principal)
CPT/HCPCS: 99283; 96372; 72050; J1885

== ENCOUNTER → 2019-12-23 | Outpatient (CLI) | payer OTHER ==
--- NOTE | 2019-12-23 16:27 | RADIOLOGY REPORT (SQ) ---
EXAM DESCRIPTION: CT FACIAL AREA WITHOUT COMPLETED DATE/TIME: 12/23/2019 3:42 pm REASON FOR STUDY: Z04.2 ENCOUNTER FOR EXAM AND OBSERVATION FOLLOWING WORK ACCIDENT Z04.2 ENCOUNTER FOR EXAM AND OBSERVATION FOLLOWING WORK ACCI COMPARISON: None. TECHNIQUE: Noncontrasted images through the facial bones and orbits windowed for bone and soft tissu e. Additional coronal and sagittal reconstructed images reviewed. All images stored on PACS. All CT scanners at this facility use dose modulation, iterative reconstruction, and/or weight based d osing when appropriate to reduce radiation dose to as low as reasonably achievable (ALARA). [facility]: Dose Right [facility]: CareDose [facility]: Dose Right [facility]: Teradose 4D [facility]: SoPost RADIATION DOSE: DLP 839.85 mGy cm. LIMITATIONS: None. FINDINGS: FACIAL BONES: No fracture. The TMJs are in anatomic alignment. ORBITS: The orbits are intact. The globes are aphakic. The extraocular muscles and optic nerve peraza th complexes are normal appearance. There is no radiopaque foreign body. PARANASAL SINUSES: The lining of the right sphenoid sinus is mildly thickened. There is no paranasal sinus air-fluid level. There is asia bullosa of the left middle turbinate without deviation of th e nasal septum. The ostiomeatal complexes are patent. SOFT TISSUES: No mass or edema. INFERIOR BRAIN: No acute intracranial abnormality. OTHER: No other finding. IMPRESSION: No acute findings. TECHNICAL DOCUMENTATION: JOB ID: [id number] Quality ID # [id number]: Final reports with documentation of one or more dose reduction techniques (e.g., Au tomated exposure control, adjustment of the mA and/or kV according to patient size, use of iterative reconstruction technique) 2010 [employer]- All Rights Reserved Reading location - IP/workstation name: [email or web address]
== END ==
LOC: RAD 15:00
PROVIDERS: ATTEND Nurse Practitioner
DX: Z04.2 Encounter for examination and observation following work accident (principal)
CPT/HCPCS: 70486